=== PATIENT | female | born 1960 | race Caucasian/White ===

== ENCOUNTER 2020-08-06 07:48 | Outpatient (REF) | payer OTHER, SELFPAY ==
[2020-08-06 11:04] LABS: MANUAL DIFF FLAG NO
[2020-08-06 11:11] LABS: Glucose Urine UA NEG (NEG); Leukocyte Esterase Urine NEG (NEG); Nitrite Urine NEG (NEG); PH 5.5 (5.0-8.0); Specific Gravity - Urine >= 1.030 (1.005-1.025); Urine Blood NEG (NEG); Urine Ketones NEG (NEG); Urine Protein NEG (NEG-TRACE)
[2020-08-06 11:13] LABS: Appearance Urine CLOUDY; Color Urine YELLOW
[2020-08-06 11:25] LABS: Basophils Percent Auto 0.5 % (0-2); Eosinophils Absolute Auto 0.2 X10*3/uL (0.0-0.4); Eosinophils Percent Auto 2.7 % (0-4); Hematocrit 40.8 % (37-47); Hemoglobin 13.5 g/dl (12.0-16.0); Imm Gran Abs Auto 0.02 X10*3/uL (0.00-0.03); Imm Gran Pct Auto 0.3 % (0.0-0.4); Lymphocytes Absolute Auto 1.7 X10*3/uL (1.2-4.9); Lymphocytes Percent Auto 27.8 % (20-40); Mean Corpuscular HGB Conc 33.1 g/dl (31.0-35.0); Mean Corpuscular Hemoglobin 31.8 pg (27.0-33.0); Mean Corpuscular Volume 96.2 fL (80-98); Mean Platelet Volume 9.8 fL (9.4-12.3); Monocytes Absolute Auto 0.5 X10*3/uL (0.1-1.2); Monocytes Percent Auto 7.2 % (2-11); Neutrophils Absolute Auto 3.8 X10*3/uL (2.0-8.3); Neutrophils Percent Auto 61.5 % (45-73); Platelet Count 275 X10*3/uL (160-400); Red Blood Count 4.24 X10*6/uL (4.20-5.50); Red Cell Distribution Width 12.6 % (11.0-16.0); White Blood Count 6.2 X10*3/uL (4.8-10.8)
[2020-08-06 11:32] LABS: Estimated Average Glucose 111 mg/dL; Hemoglobin A1c % 5.5 %
[2020-08-06 11:59] LABS: Alanine Aminotransferase 103 U/L (0-31); Albumin Level 4.6 g/dL (3.5-5.0); Alkaline Phosphatase 43 U/L (39-117); Anion Gap 16 (12-20); Aspartate Amino Transferase 23 U/L (5-31); Bilirubin Total 0.8 mg/dL (0.0-1.0); Blood Urea Nitrogen 17 mg/dL (9-16); Calcium 9.6 mg/dL (8.4-10.2); Carbon Dioxide 25 mmol/L (22-29); Chloride 106 mmol/L (96-108); Cholesterol 212 mg/dL; Estimated Glomerular Filt Rate > 60; Glucose Fasting 118 mg/dL (60-99); HDL Cholesterol 58 mg/dL; LDL Cholesterol Calculated 124 mg/dl; Potassium 4.3 mmol/L (3.3-5.1); Sodium 143 mmol/L (135-145); Triglycerides 151 mg/dL
[2020-08-06 12:18] LABS: TSH reflex Free T4 2.04 uIU/mL (0.32-4.0); Vitamin D 25-OH Total 24.6 ng/mL (>30)
== END 2020-08-06 07:49 | disposition home or self-care (01) ==
LOC: HO.HMGCLDS 07:48
PROVIDERS: PCP Internal Medicine; Visit Provider Internal Medicine
DX: R73.01 Impaired fasting glucose (principal); E55.9 Vitamin D deficiency, unspecified; M85.80 Other specified disorders of bone density and structure, unspecified site; N39.46 Mixed incontinence; E78.00 Pure hypercholesterolemia, unspecified; E66.01 Morbid (severe) obesity due to excess calories; Z68.41 Body mass index [BMI] 40.0-44.9, adult; K29.70 Gastritis, unspecified, without bleeding; J30.9 Allergic rhinitis, unspecified; F17.200 Nicotine dependence, unspecified, uncomplicated
CPT/HCPCS: 36415; 80053; 80061; 81003; 82306; 83036; 84443; 85025

== ENCOUNTER 2020-08-27 09:41 | Outpatient (REF) | payer OTHER, SELFPAY ==
--- NOTE | ~2020-08-27 | MM_ITS ---
EXAMINATION: MM SCREENING DIGITAL BREAST TOMOSYNTHESIS, BILATERAL CLINICAL INFORMATION: Screening. Asymptomatic. The lifetime risk of breast cancer based on the Tyrer-Cuzick Model is 7%. COMPARISON: Mammography: 12/26/2018, 12/20/2017, 12/15/2016, 12/13/2014, 12/06/2014; right breast ultrasound 12/13/2014. TECHNIQUE: Digital breast tomosynthesis is performed in both the craniocaudal and mediolateral oblique views along with computer-aided detection (CAD). Synthesized 2D images are generated from the tomosynthesis. FINDINGS: There are scattered areas of fibroglandular density (ACR BI-RADS breast composition Category b). There are no significant masses, abnormal calcifications, or other abnormalities. There is a smooth nodule central anterior 9:00 right breast similar to prior imaging. The bilateral axilla and skin contours are unremarkable. MM/MM tomosynthesis screening BI IMPRESSION: No significant changes from prior exams. ASSESSMENT: BI-RADS 2: Benign RECOMMENDATION: Routine annual mammography screening. This patient's information was entered into a reminder system with a target due date for their next mammogram.
== END 2020-08-27 09:42 | disposition home or self-care (01) ==
LOC: HO.MAMMO 09:41
PROVIDERS: PCP Internal Medicine; Visit Provider Internal Medicine
DX: Z12.31 Encounter for screening mammogram for malignant neoplasm of breast (principal)
CPT/HCPCS: 77063; 77067

== ENCOUNTER 2020-09-29 07:25 | Day surgery (SDC) | payer OTHER, SELFPAY ==
[2020-09-18 11:21] VITALS: BMI 42.3
--- NOTE | 2020-09-24 16:34 | MHC.SHP ---
Pre-Procedural Eval Section A The patient is an INPATIENT: No The History & Physical has been completed within 30 days and I have reviewed it.: Yes Section B Chief Complaint: Cataract Right Eye Allergies: Allergies Allergy/AdvReac Type Severity Reaction Status Date / Time Seasonal Allergy Unknown unknown Uncoded 09/18/20 11:08 trees and pollen Allergy Unknown unknown Uncoded 09/18/20 11:08 Plan Diagnosis/Plan: Unchanged I have reviewed the history and physical and performed a pertinent physical examination on my patient. No changes have occurred unless specified.
--- NOTE | 2020-09-26 09:40 | HO.ANESPROP2 ---
Documented by User: Katherine Pepper 09/26/20 09:40 HPI - Anesthesia Eval Consult details Narrative: 60yo F for Right Cataract Extraction IOL Insertion PCP Cleared No prev cataract on record PMFSH Active Problems Active Problems: All Active Problems (Updated 09/11/20 @ 09:09 by Javan Valdovinos MD) Cataract (Acute) Preoperative clearance (Acute) Morbid obesity with BMI of 40.0-44.9, adult (Acute) Smoker (Acute) Major depression, recurrent (Acute) Anxiety (Acute) Mixed stress and urge urinary incontinence (Acute) Post herpetic neuralgia (Acute) Osteopenia (Acute) Vitamin D deficiency (Acute) Allergic rhinitis (Acute) Impaired fasting glucose (Acute) Pure hypercholesterolemia (Acute) Gastritis (Acute) Past Medical History Medical History Allergic rhinitis Anxiety Cataract Gastritis Impaired fasting glucose Major depression, recurrent Mixed stress and urge urinary incontinence Morbid obesity with BMI of 40.0-44.9, adult Osteopenia Post herpetic neuralgia Pure hypercholesterolemia Smoker Vitamin D deficiency Family History Family History Father Diabetes Brain tumor Mother COPD (chronic obstructive pulmonary disease) Emphysema lung Surgical History Surgical History History of bunionectomy History of foot surgery Social History Social History Are you a primary caregiver assisted living to a significant other at home: No Do you presently have visiting nurse or other home services: No Alcohol intake: never Patient Tobacco Use Status: Current everyday Tobacco user Tobacco use type: Cigarette Cigarette Packs Per Day: 0.5 Cigarettes Per Day: 10.0 Years Smoked: 40 Smoked in Last 30 Days: Yes Patient Interested in Nicotine Replacement: No Use of substances other than those prescribed or required for medical reasons: No Have you been hit, kicked, punched, or otherwise hurt by someone within the past year? If so, by whom?: No Are you DNR?: No Advance Directives: No Advance Directives Information Provided: No Advance Directives on File: No Recently lost weight without trying: No Eating poorly because of decreased appetite: No Nutrition Risks: No Nutritional Risk Patient : No Meds Allergies Allergy/AdvReac Type Severity Reaction Status Date / Time Seasonal Allergy Unknown unknown Uncoded 09/18/20 11:08 trees and pollen Allergy Unknown unknown Uncoded 09/18/20 11:08 Home Medications Medication Instructions Recorded Confirmed Last Taken Type aspirin 81 mg chewable tablet 81 mg PO DAILY 03/10/20 09/18/20 Unknown History omeprazole 20 mg PO DAILY PRN 09/18/20 09/18/20 Unknown History Exam Exam Date and Time: September 26, 2020 0940 Height,Weight and Vital Signs: Height 5 ft 1 in Weight 101.605 kg Assessment and Plan Assessment Anesthesia Assessment: Chart Reviewed Documented by User: Eusebio Sweeney 09/29/20 07:22 [facility] Past Medical History Medical History Allergic rhinitis Anxiety Cataract Gastritis Impaired fasting glucose Major depression, recurrent Mixed stress and urge urinary incontinence Morbid obesity with BMI of 40.0-44.9, adult Osteopenia Post herpetic neuralgia Pure hypercholesterolemia Smoker Vitamin D deficiency Family History Family History Father Diabetes Brain tumor Mother COPD (chronic obstructive pulmonary disease) Emphysema lung Surgical History Surgical History History of bunionectomy History of foot surgery Social History Social History Are you a primary caregiver assisted living to a significant other at home: No Do you presently have visiting nurse or other home services: No Alcohol intake: never Patient Tobacco Use Status: Current everyday Tobacco user Tobacco use type: Cigarette Cigarette Packs Per Day: 0.5 Cigarettes Per Day: 10.0 Years Smoked: 40 Smoked in Last 30 Days: Yes Patient Interested in Nicotine Replacement: No Use of substances other than those prescribed or required for medical reasons: No Have you been hit, kicked, punched, or otherwise hurt by someone within the past year? If so, by whom?: No Are you DNR?: No Advance Directives: No Advance Directives Information Provided: No Advance Directives on File: No Recently lost weight without trying: No Eating poorly because of decreased appetite: No Nutrition Risks: No Nutritional Risk Patient : No Meds Allergies Allergy/AdvReac Type Severity Reaction Status Date / Time Seasonal Allergy Unknown unknown Uncoded 09/18/20 11:08 trees and pollen Allergy Unknown unknown Uncoded 09/18/20 11:08 Home Medications Medication Instructions Recorded Confirmed Last Taken Type aspirin 81 mg chewable tablet 81 mg PO DAILY 03/10/20 09/18/20 Unknown History omeprazole 20 mg PO DAILY PRN 09/18/20 09/18/20 Unknown History Exam Airway Mallampati Class: III TM Dist: >3cm Neck ROM: Full Loose/Missing/Broken Teeth: Yes Heart: [id number] Lungs: cta b/l Assessment and Plan Assessment Anesthesia Assessment: Anesthesia Plan Discussed, PAT Visit and Chart Reviewed Final Anesthetic Review NPO: Yes ASA Class: III Final Preanesthetic Review: No Changes in Pt Med Stat, Meds/Allgs Chart Reviewed, Consent Obtained/Reviewed and Anes Risks/Benef Reviewed Patient Risk: Low Procedure Risk: Low Assessment/Block/Sedation in SS: Assess/Block/Sedation-SS Anesthetic Plan Anesthetic Plan: MAC: and Agree w/ Assess. and Plan Disposition: Standard PACU
--- NOTE | 2020-09-29 07:19 | PC.NURSE ---
MD HANDY AWARE OF PATIENT H AND P NOT STATING CLEARANCE. OK TO PROCEED.
[2020-09-29 07:31] VITALS: BP 158/66; PULSE 89; RESP 16; TEMP 36.5; O2SAT 97
[2020-09-29] MEDS: Tetracaine HCl/PF 0.5% Oph Sol 4 ML DROPS 1 DROP EYE-RIGHT (07:40)
[2020-09-29] MEDS: Tropicamide 1 % Ophth Sol 3 ML BTL 1 DROP EYE-RIGHT ×3 (07:41→07:54)
[2020-09-29] MEDS: Lactated Ringers 500 ML 50 ML IV (07:45)
[2020-09-29] MEDS: Phenylephrine HCL 2.5% Oph SoL 2 ML BOTTLE 1 DROP EYE-RIGHT ×3 (07:46→07:57)
--- NOTE | 2020-09-29 08:36 | HO.PNOPHT ---
Ophthalmology Procedure Procedure Date of Service: 09/29/20 Ophthalmology Viscoelastic: Healon Duet Dual Pack Pro Ophthalmology Lenses: TECNIS [id number] (20.5) Procedure Notes: PREOPERATIVE DIAGNOSIS: Decreased visual acuity right eye secondary to cataract POSTOPERATIVE DIAGNOSIS: Same PROCEDURE: Right cataract extraction with intraocular lens insertion SURGEON: Giancarlo Kahn M.D. ANESTHESIA: Topical/MAC ESTIMATED BLOOD LOSS: None COMPLICATIONS: None After obtaining informed consent, the patient was brought to the operating room suite and placed in the supine position. After adequate sedation per anesthesia, topical drops of Tetracaine were given to the right eye. The eye was then prepped and draped in the usual sterile fashion. The operating room microscope was then positioned over the operative eye and a lid speculum placed. A paracentesis was created. Viscoelastic was then instilled into the anterior chamber. A three plane incision was then created temporally, utilizing a 2.85 mm keratome. Capsulotomy forceps were then utilized to create a circular tear capsulotomy. Hydrodissection and hydrodelineation were carried out until adequate mobilization of the nucleus occurred. Phacoemulsification was then utilized to remove the dense central nucleus followed by removal of the cortical material utilizing the automated aspiration irrigation unit. Viscoelastic was instilled into the posterior capsular bag followed by placement of a posterior chamber intraocular lens without difficulty. The residual Viscoelastic was then removed utilizing the automated IA machine. The wound was checked and found to be watertight. The patient tolerated the procedure well and the lid speculum was removed. Intracameral injection of Vigamox 0.1 mL followed by a subtenon injection of Kenalog-40 0.2 mL were administered. The patient will be seen in the a.m.
[2020-09-29 09:02] VITALS: BP 158/69; PULSE 84; RESP 16; TEMP 36.2; O2SAT 97
== END 2020-09-29 09:13 | disposition home or self-care (01) ==
PROVIDERS: PCP Internal Medicine; Visit Provider Ophthalmology
PROC: (CPT 66985; principal; 2020-09-29 08:40)
DX: H25.11 Age-related nuclear cataract, right eye (principal); H54.7 Unspecified visual loss; F32.9 Major depressive disorder, single episode, unspecified; B02.29 Other postherpetic nervous system involvement; R73.01 Impaired fasting glucose; M85.80 Other specified disorders of bone density and structure, unspecified site; E66.01 Morbid (severe) obesity due to excess calories; Z68.41 Body mass index [BMI] 40.0-44.9, adult; Z79.899 Other long term (current) drug therapy; Z79.82 Long term (current) use of aspirin; F17.210 Nicotine dependence, cigarettes, uncomplicated
CPT/HCPCS: 66984; J2250; J3010; J3300; V2632

== ENCOUNTER 2020-11-20 13:57 | Outpatient (REF) | payer OTHER, SELFPAY | END 2020-11-20 13:58 | disposition home or self-care (01) | LOC: HO.LNP 13:57 | PROVIDERS: Visit Provider Internal Medicine | DX: Z20.822 Contact with and (suspected) exposure to COVID-19 (principal) | CPT/HCPCS: U0003; U0005 ==

== ENCOUNTER 2021-03-07 09:02 | Outpatient (REF) | payer OTHER, SELFPAY ==
[2021-03-07 11:32] LABS: Hematocrit 40.5 % (37.0-47.0); Hemoglobin 13.6 g/dl (12.0-16.0); Mean Corpuscular HGB Conc 33.6 g/dl (31.0-35.0); Mean Corpuscular Hemoglobin 31.4 pg (27.0-33.0); Mean Corpuscular Volume 93.5 fL (80.0-98.0); Mean Platelet Volume 10.2 fL (9.4-12.3); Platelet Count 178 X10*3/uL (160-400); Red Blood Count 4.33 X10*6/uL (4.20-5.50); Red Cell Distribution Width 12.1 % (11.0-16.0)
[2021-03-07 11:53] LABS: Alanine Aminotransferase 30 U/L (0-31); Albumin Level 4.6 g/dL (3.5-5.0); Alkaline Phosphatase 43 U/L (39-117); Anion Gap 16 (12-20); Aspartate Amino Transferase 18 U/L (5-31); Bilirubin Total 0.7 mg/dL (0.0-1.0); Blood Urea Nitrogen 17 mg/dL (9-16); Calcium 9.7 mg/dL (8.4-10.2); Carbon Dioxide 24 mmol/L (22-29); Chloride 106 mmol/L (96-108); Cholesterol 194 mg/dL; Estimated Glomerular Filt Rate > 60; Glucose Fasting 123 mg/dL (60-99); HDL Cholesterol 59 mg/dL; LDL Cholesterol Calculated 108 mg/dl; Potassium 4.5 mmol/L (3.3-5.1); Sodium 141 mmol/L (135-145); Triglycerides 138 mg/dL
== END 2021-03-07 09:03 | disposition home or self-care (01) ==
LOC: HO.HMGCLDS 09:02
PROVIDERS: PCP Internal Medicine; Visit Provider Nurse Practitioner Family
DX: E78.00 Pure hypercholesterolemia, unspecified (principal); R42 Dizziness and giddiness
CPT/HCPCS: 36415; 80048; 80053; 80061; 85027

== ENCOUNTER 2021-05-21 10:15 | Outpatient (REF) | payer OTHER, SELFPAY ==
--- NOTE | ~2021-05-21 | CT_ITS ---
EXAMINATION: CT CHEST SCREENING CLINICAL INFORMATION: Current smoker. 40 pack year history. COMPARISON: Previous chest CT most recent October 2019 TECHNIQUE: Multidetector volumetric CT imaging of the chest is performed without contrast using low dose technique. Additional 2D coronal and sagittal reformatted images and axial 3D maximum intensity projection (MIP) images are generated on the CT workstation. This CT examination was performed using dose optimization techniques as appropriate, variously including the following: *Automated exposure control *Adjustment of mA and/or kV according to patient size (this includes techniques or standardized protocols for targeted exams where dose is matched to indication/reason for exam; i.e. extremities or head) *Use of iterative reconstruction technique DLP: 89 mGy-cm FINDINGS: LUNGS: There is evidence of mild paraseptal emphysema. There is a focal cystic change in the left upper lobe adjacent to the fissure for example coronal reconstructed image 43 and sagittal reconstructed image 23 that is stable. There is a 3 mm calcified right lower lobe nodule axial image 326 series 4 that is stable. No new pulmonary nodule is seen. There is an azygos lobe. MEDIASTINUM: Mild coronary artery calcification. The mediastinum is otherwise normal. PLEURA: There is no pleural effusion. No pleural mass or thickening. AXILLA: No lymphadenopathy. UPPER ABDOMEN: Unremarkable OSSEOUS STRUCTURES: There are degenerative changes of the spine. CT/CT lung screening IMPRESSION: Mild emphysema. Stable small calcified right lower lobe nodule and focal cystic change in the left upper lobe adjacent to the fissure. Mild coronary artery calcification. ASSESSMENT: Lung-RADS category 2: Benign RECOMMENDATION: Annual low-dose chest CT follow-up recommended.
== END 2021-05-21 10:16 | disposition home or self-care (01) ==
LOC: HO.CT 10:15
PROVIDERS: Visit Provider Physician Assistant Medical
DX: Z12.2 Encounter for screening for malignant neoplasm of respiratory organs (principal); F17.200 Nicotine dependence, unspecified, uncomplicated
CPT/HCPCS: 71271

== ENCOUNTER 2021-08-31 10:20 | Outpatient (REF) | payer OTHER, SELFPAY ==
--- NOTE | ~2021-08-31 | MM_ITS ---
EXAMINATION: MM SCREENING DIGITAL BREAST TOMOSYNTHESIS, BILATERAL CLINICAL INFORMATION: Screening. Asymptomatic. The lifetime risk of breast cancer based on the Tyrer-Cuzick Model is 7%. COMPARISON: Mammography: 08/27/2020, 12/26/2018, 12/20/2017, 12/15/2016 TECHNIQUE: Digital breast tomosynthesis is performed in both the craniocaudal and mediolateral oblique views along with computer-aided detection (CAD). Synthesized 2D images are generated from the tomosynthesis. Additional right CC view is provided. FINDINGS: There are scattered areas of fibroglandular density (ACR BI-RADS breast composition Category b). Parenchymal pattern is similar to prior studies. There is a smooth oval nodule again noted on tomography central anterior 9:00 right breast. There is no significant mass or interval architectural abnormality or abnormal calcifications. The axilla and skin contours are normal. No significant changes. MM/MM tomosynthesis screening BI IMPRESSION: No significant changes from prior studies. ASSESSMENT: BI-RADS 2: Benign RECOMMENDATION: Routine annual mammography screening. This patient's information was entered into a reminder system with a target due date for their next mammogram.
== END 2021-08-31 10:21 | disposition home or self-care (01) ==
LOC: HO.MAMMO 10:20
PROVIDERS: PCP Internal Medicine; Visit Provider Internal Medicine
DX: Z12.31 Encounter for screening mammogram for malignant neoplasm of breast (principal)
CPT/HCPCS: 77063; 77067

== ENCOUNTER 2021-10-03 08:48 | Outpatient (REF) | payer OTHER, SELFPAY ==
[2021-10-03 11:27] LABS: MANUAL DIFF FLAG NO
[2021-10-03 11:47] LABS: Basophils Percent Auto 0.6 % (0-2); Eosinophils Absolute Auto 0.2 X10*3/uL (0.0-0.4); Hematocrit 41.1 % (37.0-47.0); Hemoglobin 13.5 g/dl (12.0-16.0); Imm Gran Abs Auto 0.01 X10*3/uL (0.00-0.03); Imm Gran Pct Auto 0.2 % (0.0-0.4); Lymphocytes Absolute Auto 1.8 X10*3/uL (1.2-4.9); Lymphocytes Percent Auto 33.9 % (20-40); Mean Corpuscular HGB Conc 32.8 g/dl (31.0-35.0); Mean Corpuscular Hemoglobin 31.2 pg (27.0-33.0); Mean Corpuscular Volume 94.9 fL (80.0-98.0); Mean Platelet Volume 9.9 fL (9.4-12.3); Monocytes Absolute Auto 0.5 X10*3/uL (0.1-1.2); Monocytes Percent Auto 9.7 % (2-11); Neutrophils Absolute Auto 2.8 x10*3/uL (2.0-8.3); Neutrophils Percent Auto 52.6 % (45-73); Platelet Count 295 X10*3/uL (160-400); Red Blood Count 4.33 X10*6/uL (4.20-5.50); White Blood Count 5.3 X10*3/uL (4.8-10.8)
[2021-10-03 11:50] LABS: Estimated Average Glucose 108 mg/dL; Hemoglobin A1c % 5.4 %
[2021-10-03 11:59] LABS: Alanine Aminotransferase 35 U/L (0-31); Albumin Level 4.5 g/dL (3.5-5.0); Alkaline Phosphatase 47 U/L (39-117); Anion Gap 16 (12-20); Aspartate Amino Transferase 18 U/L (5-31); Bilirubin Total 0.3 mg/dL (0.0-1.0); Blood Urea Nitrogen 18 mg/dL (9-16); Calcium 9.4 mg/dL (8.4-10.2); Carbon Dioxide 23 mmol/L (22-29); Chloride 109 mmol/L (96-108); Cholesterol 210 mg/dL; Estimated Glomerular Filt Rate > 60; Glucose Fasting 115 mg/dL (60-99); HDL Cholesterol 62 mg/dL; LDL Cholesterol Calculated 129 mg/dl; Potassium 4.8 mmol/L (3.3-5.1); Sodium 143 mmol/L (135-145); Total Protein 6.9 g/dL (6.5-8.0); Triglycerides 95 mg/dL
[2021-10-03 12:12] LABS: Appearance Urine CLOUDY; Color Urine YELLOW; Glucose Urine UA NEG (NEG); Leukocyte Esterase Urine NEG (NEG); Nitrite Urine NEG (NEG); PH 5.5 (5.0-8.0); Specific Gravity - Urine >= 1.030 (1.005-1.025); Urine Blood NEG (NEG); Urine Ketones NEG (NEG); Urine Protein NEG (NEG-TRACE)
[2021-10-03 12:22] LABS: TSH reflex Free T4 0.81 uIU/mL (0.32-4.0); Vitamin D 25-OH Total 34.8 ng/mL (>30)
== END 2021-10-03 08:49 | disposition home or self-care (01) ==
LOC: HO.HMGCLDS 08:48
PROVIDERS: PCP Internal Medicine; Visit Provider Internal Medicine
DX: I10 Essential (primary) hypertension (principal); E78.00 Pure hypercholesterolemia, unspecified; E55.9 Vitamin D deficiency, unspecified; R73.01 Impaired fasting glucose
CPT/HCPCS: 36415; 80053; 80061; 81003; 82306; 83036; 84443; 85025

== ENCOUNTER 2022-02-13 08:28 | Outpatient (REF) | payer OTHER, SELFPAY ==
[2022-02-13 11:22] LABS: MANUAL DIFF FLAG NO
[2022-02-13 11:29] LABS: Appearance Urine Clear; Color Urine Yellow; Glucose Urine UA Negative (Negative); Leukocyte Esterase Urine Negative (Negative); Nitrite Urine Negative (Negative); PH 6.5 (5.0-9.0); Specific Gravity - Urine 1.025 (1.005-1.025); Urine Blood Negative (Negative); Urine Ketones Negative (Negative); Urine Protein Negative (Neg-Trace)
[2022-02-13 11:33] LABS: Basophils Percent Auto 0.4 % (0-2); Eosinophils Absolute Auto 0.1 X10*3/uL (0.0-0.4); Eosinophils Percent Auto 2.4 % (0-4); Hematocrit 40.3 % (37.0-47.0); Hemoglobin 13.4 g/dl (12.0-16.0); Imm Gran Abs Auto 0.02 X10*3/uL (0.00-0.03); Imm Gran Pct Auto 0.4 % (0.0-0.4); Lymphocytes Absolute Auto 1.5 X10*3/uL (1.2-4.9); Lymphocytes Percent Auto 28.7 % (20-40); Mean Corpuscular HGB Conc 33.3 g/dl (31.0-35.0); Mean Corpuscular Hemoglobin 31.4 pg (27.0-33.0); Mean Corpuscular Volume 94.4 fL (80.0-98.0); Mean Platelet Volume 10.3 fL (9.4-12.3); Monocytes Absolute Auto 0.4 X10*3/uL (0.1-1.2); Monocytes Percent Auto 7.5 % (2-11); Neutrophils Absolute Auto 3.2 x10*3/uL (2.0-8.3); Neutrophils Percent Auto 60.6 % (45-73); Platelet Count 168 X10*3/uL (160-400); Red Blood Count 4.27 X10*6/uL (4.20-5.50); Red Cell Distribution Width 12.5 % (11.0-16.0); White Blood Count 5.3 X10*3/uL (4.8-10.8)
[2022-02-13 11:51] LABS: Alanine Aminotransferase 37 U/L (0-31); Albumin Level 4.5 g/dL (3.5-5.0); Alkaline Phosphatase 44 U/L (39-117); Anion Gap 16 (12-20); Aspartate Amino Transferase 24 U/L (5-31); Bilirubin Total 0.5 mg/dL (0.0-1.0); Blood Urea Nitrogen 19 mg/dL (9-16); Calcium 9.5 mg/dL (8.4-10.2); Carbon Dioxide 24 mmol/L (22-29); Chloride 108 mmol/L (96-108); Cholesterol 202 mg/dL; Estimated Glomerular Filt Rate > 60; Glucose Fasting 122 mg/dL (60-99); HDL Cholesterol 68 mg/dL; LDL Cholesterol Calculated 116 mg/dl; Potassium 4.4 mmol/L (3.3-5.1); Sodium 144 mmol/L (135-145); Total Protein 6.7 g/dL (6.5-8.0); Triglycerides 94 mg/dL
[2022-02-13 12:14] LABS: TSH reflex Free T4 1.06 uIU/mL (0.32-4.0); Vitamin D 25-OH Total 37.4 ng/mL (>30)
== END 2022-02-13 08:29 | disposition home or self-care (01) ==
LOC: HO.HMGCLDS 08:28
PROVIDERS: PCP Internal Medicine; Visit Provider Internal Medicine
DX: E78.00 Pure hypercholesterolemia, unspecified (principal); E55.9 Vitamin D deficiency, unspecified; I10 Essential (primary) hypertension
CPT/HCPCS: 36415; 80053; 80061; 81003; 82306; 84443; 85025

== ENCOUNTER 2022-03-05 09:33 | Outpatient (REF) | payer OTHER, SELFPAY ==
[2022-03-09 06:37] LABS: HPV mRNA E6/E7 rflx Not Detected (Not Detected)
== END 2022-03-05 09:34 | disposition home or self-care (01) ==
LOC: HO.LNP 09:33
PROVIDERS: Visit Provider Advanced Practice Midwife
DX: Z01.419 Encounter for gynecological examination (general) (routine) without abnormal findings (principal)
CPT/HCPCS: 87624; 88142

== ENCOUNTER 2022-06-16 08:44 | Outpatient (REF) | payer OTHER, SELFPAY ==
[2022-06-16 11:55] LABS: Alanine Aminotransferase 38 U/L (0-31); Albumin Level 4.5 g/dL (3.5-5.0); Alkaline Phosphatase 43 U/L (39-117); Anion Gap 12 (12-20); Aspartate Amino Transferase 21 U/L (5-31); Bilirubin Total 0.8 mg/dL (0.0-1.0); Blood Urea Nitrogen 21 mg/dL (9-16); Calcium 9.5 mg/dL (8.4-10.2); Carbon Dioxide 27 mmol/L (22-29); Chloride 107 mmol/L (96-108); Cholesterol 204 mg/dL; Estimated Glomerular Filt Rate > 60; Glucose Fasting 149 mg/dL (60-99); HDL Cholesterol 61 mg/dL; LDL Cholesterol Calculated 124 mg/dl; Potassium 4.3 mmol/L (3.3-5.1); Sodium 142 mmol/L (135-145); Total Protein 6.6 g/dL (6.5-8.0); Triglycerides 97 mg/dL
[2022-06-16 11:56] LABS: Estimated Average Glucose 123 mg/dL; Hemoglobin A1C 151.7954 umol/L; Hemoglobin A1c % 5.9 %
== END 2022-06-16 08:45 | disposition home or self-care (01) ==
LOC: HO.HMGCLDS 08:44
PROVIDERS: PCP Internal Medicine; Visit Provider Internal Medicine
DX: E78.00 Pure hypercholesterolemia, unspecified (principal); R73.01 Impaired fasting glucose
CPT/HCPCS: 36415; 80053; 80061; 83036

== ENCOUNTER 2022-07-09 09:04 | Outpatient (REF) | payer OTHER, SELFPAY ==
--- NOTE | ~2022-07-09 | CT_ITS ---
EXAMINATION: LUNG CANCER SCREENING CT CHEST WITHOUT CONTRAST CLINICAL INFORMATION: Current smoker with 50 pack year history COMPARISON: 05/21/2021 TECHNIQUE: Multidetector volumetric CT imaging of the chest was obtained noncontrast using low dose screening CT technique. Axial thin section 0.625 mm reformations in soft tissue and lung windows were obtained. Sagittal and coronal reformations were obtained. Axial MIP images were also created and reviewed. This CT examination was performed using dose optimization techniques as appropriate, variously including the following: *Automated exposure control *Adjustment of mA and/or kV according to patient size (this includes techniques or standardized protocols for targeted exams where dose is matched to indication/reason for exam; i.e. extremities or head) *Use of iterative reconstruction technique TOTAL EXAM DLP: 71.00 mGy-cm. FINDINGS: PULMONARY NODULES: No suspicious pulmonary nodules. Stable calcified granulomata in the right lower lobe. LUNGS / PLEURA: Mild upper lobe predominant centrilobular emphysema. Diffuse mild bronchial wall thickening without bronchiectasis. Stable localized cystic change in the left upper lobe near the major fissure. No pleural effusion or pneumothorax. MEDIASTINUM / AFSHIN: Heart normal in size without pericardial effusion. Great vessels normal caliber. No lymphadenopathy. Coronary calcifications present. Imaged thyroid gland unremarkable. CHEST WALL / AXILLA: Unremarkable. UPPER ABDOMEN: Mild hepatic steatosis. OSSEOUS STRUCTURES: No acute or suspicious osseous abnormalities. CT/CT lung screening IMPRESSION: * No evidence of pulmonary malignancy. * Mild emphysema and chronic airways disease. * Hepatic steatosis. ASSESSMENT: Lung RADS category: 2S. Benign appearance or behavior. Nodules with a very low likelihood of becoming a clinically active cancer due to size or lack of growth. Continue annual screening with low-dose CT in 12 months. Probability of malignancy less than 1%. Clinically significant or potentially clinically significant findings (non lung cancer). Management as appropriate to the specific finding. INCIDENTAL FINDINGS (S CATEGORY): None. RECOMMENDATION: Follow up low dose CT chest in 1 year.
== END 2022-07-09 09:05 | disposition home or self-care (01) ==
LOC: HO.CT 09:04
PROVIDERS: PCP Internal Medicine; Visit Provider Physician Assistant Medical
DX: Z12.2 Encounter for screening for malignant neoplasm of respiratory organs (principal); F17.210 Nicotine dependence, cigarettes, uncomplicated
CPT/HCPCS: 71271

== ENCOUNTER 2022-10-19 08:40 | Outpatient (REF) | payer OTHER, SELFPAY ==
--- NOTE | ~2022-10-19 | MM_ITS ---
EXAMINATION: MM SCREENING DIGITAL BREAST TOMOSYNTHESIS, BILATERAL CLINICAL INFORMATION: Screening. Asymptomatic. The lifetime risk of breast cancer based on the Tyrer-Cuzick Model is 8%. COMPARISON: Multiple prior breast imaging exams including most recent mammography 08/31/2021. TECHNIQUE: Digital breast tomosynthesis is performed in both the craniocaudal and mediolateral oblique views along with computer-aided detection (CAD). Synthesized 2D images are generated from the tomosynthesis. Additional left CC and left MLO views are provided. FINDINGS: There are scattered areas of fibroglandular density (ACR BI-RADS breast composition Category b). There are no significant masses, abnormal calcifications, or other abnormalities. No architectural abnormality or developing density or significant change from prior studies. There is a circumscribed 1.1 cm nodule again seen mid 9:30 right breast. History right cyst on remote prior ultrasound. The axilla are unremarkable. There are no significant changes. MM/MM tomosynthesis screening BI IMPRESSION: No mammographic evidence of malignancy. ASSESSMENT: BI-RADS 2: Benign RECOMMENDATION: Routine annual mammography screening. This patient's information was entered into a reminder system with a target due date for their next mammogram.
== END 2022-10-19 08:41 | disposition home or self-care (01) ==
LOC: HO.MAMMO 08:40
PROVIDERS: PCP Internal Medicine; Visit Provider Internal Medicine
DX: Z12.31 Encounter for screening mammogram for malignant neoplasm of breast (principal)
CPT/HCPCS: 77063; 77067

== ENCOUNTER 2022-11-12 10:48 | Outpatient (REF) | payer OTHER, SELFPAY ==
[2022-11-12 14:22] LABS: MANUAL DIFF FLAG NO
[2022-11-12 14:47] LABS: Basophils Percent Auto 0.5 % (0-2); Eosinophils Absolute Auto 0.2 X10*3/uL (0.0-0.4); Eosinophils Percent Auto 2.6 % (0-4); Hematocrit 43.7 % (37.0-47.0); Hemoglobin 14.1 g/dl (12.0-16.0); Imm Gran Abs Auto 0.02 X10*3/uL (0.00-0.03); Imm Gran Pct Auto 0.3 % (0.0-0.4); Lymphocytes Absolute Auto 1.7 X10*3/uL (1.2-4.9); Lymphocytes Percent Auto 30.2 % (20-40); Mean Corpuscular HGB Conc 32.3 g/dl (31.0-35.0); Mean Corpuscular Hemoglobin 30.7 pg (27.0-33.0); Mean Corpuscular Volume 95.2 fL (80.0-98.0); Monocytes Absolute Auto 0.4 X10*3/uL (0.1-1.2); Neutrophils Absolute Auto 3.4 x10*3/uL (2.0-8.3); Neutrophils Percent Auto 59.4 % (45-73); Platelet Count 247 X10*3/uL (160-400); Red Blood Count 4.59 X10*6/uL (4.20-5.50); Red Cell Distribution Width 12.6 % (11.0-16.0); White Blood Count 5.7 X10*3/uL (4.8-10.8)
[2022-11-12 15:06] LABS: Estimated Average Glucose 120 mg/dL; Hemoglobin A1C 149.6981 umol/L; Hemoglobin A1c % 5.8 %
[2022-11-12 15:15] LABS: Alanine Aminotransferase 36 U/L (0-31); Albumin Level 4.7 g/dL (3.5-5.0); Alkaline Phosphatase 46 U/L (39-117); Anion Gap 13 (12-20); Aspartate Amino Transferase 22 U/L (5-31); Bilirubin Total 0.6 mg/dL (0.0-1.0); Blood Urea Nitrogen 17 mg/dL (9-16); Carbon Dioxide 26 mmol/L (22-29); Chloride 106 mmol/L (96-108); Cholesterol 181 mg/dL; Estimated Glomerular Filt Rate > 60; Glucose Fasting 121 mg/dL (60-99); HDL Cholesterol 61 mg/dL; LDL Cholesterol Calculated 98 mg/dl; Potassium 4.2 mmol/L (3.3-5.1); Sodium 141 mmol/L (135-145); Total Protein 7.2 g/dL (6.5-8.0); Triglycerides 110 mg/dL
== END 2022-11-12 10:49 | disposition home or self-care (01) ==
LOC: HO.HMGCLDS 10:48
PROVIDERS: PCP Internal Medicine; Visit Provider Internal Medicine
DX: R73.01 Impaired fasting glucose (principal); I10 Essential (primary) hypertension; E78.00 Pure hypercholesterolemia, unspecified
CPT/HCPCS: 36415; 80053; 80061; 83036; 85025

== ENCOUNTER 2022-12-16 09:26 | Outpatient (AMB) | payer OTHER, SELFPAY ==
--- NOTE | 2022-12-16 10:59 | AM.OFFWIN_ITS ---
Intake Vital Signs 12/16/22 11:05 Weight 102.058 kg BP 120/80 Blood Pressure Location Lt brachial Position Sitting Pulse 104 H Pulse Source Pulse Oximeter Temp 99 F Temp Source Oral Pulse Oximetry (%) 95 Oxygen Delivery Method Room Air Intake Visit Reasons: EP, headache, ear pain, body ache [phone] Intake Note: Patient here because she has been sick since Tuesday, she has headaches, bilat ear pain, bodyaches and chills. Patient Tobacco Use Status: Current everyday Tobacco user Allergies Seasonal Allergy (Unknown, Uncoded 12/16/22 11:00) unknown trees and pollen Allergy (Unknown, Uncoded 12/16/22 11:00) unknown Do you need a note to return to daycare/school/sports/work: Yes HPI HPI Comments History of Present Illness Details 1132 62-year-old female presents COVID like symptoms, complaining of body aches and pains, fatigue, malaise, fevers, chills, diffuse headache without vision changes or dizziness, rhinorrhea, bilateral ear discomfort, dry cough for the past 2 days, significant other at home now sick. Denies chest pain, shortness of breath, nausea, vomiting, abdominal pain. Physical examination with faint wheezing bilaterally on expiration. Concerns for COVID-19 versus viral illness versus bronchitis. No signs of necrotizing of otitis, otitis media, otitis externa, mastoiditis. No signs of stroke, posterior stroke, intracranial hemorrhage. Plan viral testing will send her home with Tylenol and albuterol and prednisone. Educated patient on diagnosis and treatment plan, answered all question, patient verbalizes understanding. At this time patient will be discharged home, advised to return with new or worsening symptoms. Educated on worrisome signs and symptoms and when to return. At this time I feel comfortable discharge home. [facility] Medical History Allergic rhinitis Anxiety Gastritis Impaired fasting glucose Major depression, recurrent Mixed stress and urge urinary incontinence Morbid obesity with BMI of 40.0-44.9, adult Nicotine dependence, cigarettes, uncomplicated Osteopenia (~2019) Post herpetic neuralgia Pure hypercholesterolemia Vitamin D deficiency Surgical History History of bunionectomy History of cataract surgery History of foot surgery Family History Father Diabetes Brain tumor Mother COPD (chronic obstructive pulmonary disease) Emphysema lung Social History Household Members Other:: fiance Housing: House Are you a primary live in caregiver to a significant other at home: No Do you presently have visiting nurse or other home services: No Alcohol intake: current Alcohol intake frequency: a few times a week Alcohol type: beer Patient Tobacco Use Status: Current everyday Tobacco user Tobacco use type: Cigarette Cigarette Packs Per Day: 0.5 Cigarettes Per Day: 10.0 Years Smoked: 40 e-Cigarette/Vaping Use: Never Used Second Hand Smoke Exposure: Yes service: No Current occupational status: employed 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 Sexual orientation: Straight/Heterosexual Gender identity: Female Cognitive needs: No Hearing needs: No Vision needs: Yes (reading glasses) Review of Systems Const Details: Constitutional : No Weight loss, + Fever, + Chills, + Fatigue, + Malaise ENT/Mouth : No sore throat, + Rhinorrhea Eyes: No Eye Pain, No Swelling, No Redness Cardiovascular : No Chest Pain, No SOB, No Dyspnea on Exertion, No Orthopnea, No Edema, No Palpitations Respiratory : + Cough, No Sputum, No Wheezing Gastrointestinal : No Nausea, No Vomiting, No Diarrhea, No Constipation, No abdominal Pain, No Hematochezia, No Melena Genitourinary : No Dysuria, No Urinary Frequency, No Hematuria, Musculoskeletal : No joint pain, + Myalgias, No Joint Swelling Skin : No Skin Lesions, No rash Neuro : No Weakness, No Numbness, No Dizziness, No Headache Psych : No Anxiety/Panic, No Depression All other systems reviewed and are negative All systems reviewed & are unremarkable except as noted in HPI and below Physical Exam Vital Signs: Last Vital Signs Temp 99 F 12/16/22 11:05 Pulse 104 H 12/16/22 11:05 BP 120/80 12/16/22 11:05 Pulse Ox 95 12/16/22 11:05 Oxygen Delivery Method Room Air 12/16/22 11:05 vss Appearance: Alert.? Oriented X3.? No acute distress.? Head: Normocephalic, atraumatic, no step-offs or deformities Eyes: Pupils equal, round and reactive to light.? ENT: Pharynx normal.??External ears normal, TMs normal bilaterally and EAC's normal. No pain with manipulation of external ears bilaterally. No mastoid tenderness. Neck: Normal inspection.? Neck supple.? CVS: Normal heart rate and rhythm.? Pulses normal.? Respiratory: No respiratory distress.? Breath sounds expiratory wheezing bilaterally faint.? Abdomen: Soft and nontender.? Skin: Skin warm and dry.? Normal skin color.? Normal skin turgor.? Extremities: No lower extremity edema.? No calf ttp. 5/5 strength to bilateral upper and lower extremities Neuro: Oriented X 3.? No motor deficit.? No sensory deficit. CN 2-12 intact Assessment & Plan Assessment & Plan (1) Viral illness: Code(s): B34.9 - Viral infection, unspecified Plan Take your medications as prescribed. If you were prescribed antibiotics today, it is important that you take your medication to their entirety, do not skip any doses, do not finish them early. Follow-up with your primary care provider this week. Return to the emergency department with new or worsening symptoms. Such as fevers, chills, chest pain, shortness of breath, nausea, vomiting, dizziness, headache, vision changes, lethargy In case of emergency call 911 Orders: Orders SARS-CoV2/FLU/RSV Today B34.9 - Viral infection, unspecified Medications: New prednisone 20 mg PO DAILY 5 tabs 0RF 5 days albuterol sulfate 90 mcg/actuation 2 puffs inhalation Q6H PRN 6.7 grams 0RF shortness of breath or wheezing acetaminophen (Tylenol) 325 mg PO QID PRN 30 caps 0RF pain Coding Level of Care Code Est Pt Level 3 (39753) Diagnoses Viral illness B34.9
[2022-12-16 11:05] VITALS: BP 120/80; PULSE 104; TEMP 37.2; O2SAT 95
== END 2022-12-16 11:35 | disposition home or self-care (01) ==
PROVIDERS: PCP Internal Medicine; Visit Provider Physician Assistant
DX: B34.9 Viral infection, unspecified (principal)
CPT/HCPCS: 99213

== ENCOUNTER 2022-12-16 15:02 | Outpatient (REF) | payer OTHER, SELFPAY ==
[2022-12-16 16:42] LABS: Influenza A PCR NEGATIVE (Negative); Influenza B PCR NEGATIVE (Negative); Resp Syncy Virus RNA Qual PCR NEGATIVE (Negative); SARS COV2 PCR INHOUSE POSITIVE (Negative)
== END 2022-12-16 15:03 | disposition home or self-care (01) ==
LOC: HO.CHCLDS 15:02
PROVIDERS: Visit Provider Physician Assistant
DX: B34.9 Viral infection, unspecified (principal); Z20.828 Contact with and (suspected) exposure to other viral communicable diseases
CPT/HCPCS: 0241U

== ENCOUNTER 2023-03-24 11:09 | Outpatient (AMB) | payer OTHER, SELFPAY ==
--- NOTE | 2023-03-24 11:14 | MHC.OFFVIS ---
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 She is doing well with concerns: overactive bladder and incontinence. Admits to having soda and caffeinated beverages. Attempting to eat a somewhat healthy diet with calcium and vitamin D and stays active with limited exercise. Currently sexually active. Denies irritation. Last pap smear; 02/2022-neg. Last mammogram; 09/2022. Colonoscopy is UTD. Denies any family history of breast or ovarian cancer. FH colon cancer. [facility] Medical History Nicotine dependence, cigarettes, uncomplicated Morbid obesity with BMI of 40.0-44.9, adult Major depression, recurrent Anxiety Mixed stress and urge urinary incontinence Post herpetic neuralgia Osteopenia (~2019) Vitamin D deficiency Allergic rhinitis Impaired fasting glucose Pure hypercholesterolemia Gastritis Surgical History History of cataract surgery History of foot surgery History of bunionectomy Family History (Updated 03/24/23 @ 11:20 by FUENTES Cadena) Father Diabetes Brain tumor Mother COPD (chronic obstructive pulmonary disease) Emphysema lung Brother Colon cancer Social History (Updated 03/24/23 @ 11:20 by FUENTES Cadena) Household Members Other:: fiance Housing: House Are you a primary child care associate to a significant other at home: No Do you presently have visiting nurse or other home services: No Alcohol intake: current Alcohol intake frequency: a few times a week Alcohol type: beer Patient Tobacco Use Status: Current everyday Tobacco user Tobacco use type: Cigarette Cigarette Packs Per Day: 0.5 Cigarettes Per Day: 4 Years Smoked: 40 e-Cigarette/Vaping Use: Never Used Second Hand Smoke Exposure: Yes service: No Current occupational status: employed 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 Sexual orientation: Straight/Heterosexual Gender identity: Female Cognitive needs: No Hearing needs: No Vision needs: Yes (reading glasses) Female Reproductive History Menstrual Total pregnancies: 2 Ab induced: 2 Date of last pap smear: 03/05/22 (neg pap and hpv) Date of Mammogram: 10/19/22 (Birad 2) Review of Systems Const All systems reviewed & are unremarkable except as noted in HPI and below Reports as per HPI Eyes Reports no additional complaints ENT Reports no additional complaints Card Reports no additional complaints Resp Reports no additional complaints GI Reports as per HPI and Reports no additional complaints Reports as per HPI Musc Reports no additional complaints Skin/Breast Reports as per HPI Neuro Reports no additional complaints Psych Reports no additional complaints Endo Reports no additional complaints Ralph/Lymph Reports no additional complaints Aller/Immun Reports no additional complaints Physical Exam Vital Signs: Last Vital Signs BP 122/74 03/24/23 11:15 BMI result Body Mass Index 42.1 Const General: cooperative, healthy appearing, no acute distress, well developed and alert Orientation/consciousness: patient oriented x3 HEENT Head: Yes normal to inspection Eyes General: appearance normal, both eyes and all related structures Neck Neck: Yes normal visual inspection Thyroid: Thyroid normal Chest Chest palpation & inspection: normal inspection of the chest and other (no puckering, dimpling, peau de orange, retraction, discharge, masses) Breast/axilla inspection: normal inspection of the breasts Breast/axilla palpation: normal palpation of the breasts Resp Effort & Inspection: normal respiratory effort GI Inspection: Yes normal to inspection Palpation (GI): Soft to palpation Rectal Exam - Female: deferred General: Yes bladder normal to palpation External Female Exam: normal external appearance and normal appearance of the urethra Speculum Exam - Vagina: normal appearance of the vagina, normal palpation and normal vaginal discharge Speculum Exam - Cervix: normal appearance of the cervix and normal palpation Bimanual exam- vagina & uterus: normal bimanual exam, normal palpation, uterine size normal, bladder normal to palpation, normal palpation and non-tender Bimanual Exam- Adnexa, other: no masses Skin General skin exam: no rashes or lesions noted Rashes: no rashes Neuro General: patient oriented x3 Cognition (Neuro): normal cognition Extrem General: Yes normal to inspection Psych Attitude: cooperative Thought process: Normal thought process present Assessment & Plan Assessment & Plan (1) Encounter for well woman exam with routine gynecological exam: Code(s): Z01.419 - Encounter for gynecological examination (general) (routine) without abnormal findings Plan: Encouraged tobacco cessation. (2) Incontinence: Code(s): R32 - Unspecified urinary incontinence Qualifiers: Urinary Incontinence type: unspecified incontinence Plan: Referral to urology. Consider pelvic floor therapy. Plan Discussed: Current recommendations for pap smears per ASCCP guidelines. Breast awareness, periodic self breast exams and yearly mammogram. Maintain a healthy lifestyle, well balanced diet including Calcium 1,200 mg and Vitamin D 600 IU daily, and routine exercise. Contact the office with any postmenopausal bleeding. Sign up for the patient portal if not already enrolled. All of her questions and concerns were addressed to the best of my ability. RTO in 1 year for annual licensed prosthetist exam. Orders: Referrals Urology Referral R32 - Unspecified urinary incontinence Coding Level of Care Code Est Pt Prev Care 40-64y(89149) Diagnoses Encounter for well woman exam with routine gynecological exam Z01.419 Incontinence R32 Urinary Incontinence type: unspecified incontinence
[2023-03-24 11:15] VITALS: BP 122/74; BMI 42.1
== END 2023-03-24 11:51 | disposition home or self-care (01) ==
PROVIDERS: PCP Internal Medicine; Visit Provider Advanced Practice Midwife
DX: Z01.419 Encounter for gynecological examination (general) (routine) without abnormal findings (principal); R32 Unspecified urinary incontinence
CPT/HCPCS: 99396

== ENCOUNTER → 2023-03-24 11:09 | Outpatient (BNVA) | payer OTHER, SELFPAY | PROVIDERS: PCP Internal Medicine; Visit Provider Advanced Practice Midwife ==

== ENCOUNTER 2023-05-03 13:17 | Outpatient (AMB) | payer OTHER, SELFPAY ==
[2023-05-03 13:19] VITALS: BP 118/76; PULSE 88; O2SAT 96; BMI 42.3
--- NOTE | 2023-05-03 13:19 | MHC.PC.OV ---
Vital Signs 05/03/23 13:19 Height 5 ft 1 in Weight 224 lb 2 oz BMI 42.3 BP 118/76 Blood Pressure Location Lt brachial Position Sitting Pulse 88 Pulse Source Pulse Oximeter Pulse Oximetry (%) 96 Oxygen Delivery Method Room Air Intake Visit Reasons: 6 Month F/U Labs Head Porter Required: No Accompanied by: Self / Same As Patient Allergies Seasonal Allergy (Unknown, Uncoded 05/03/23 13:52) unknown trees and pollen Allergy (Unknown, Uncoded 05/03/23 13:52) unknown Medication List - Last Reconciled 05/03/23 by Jose David Weeks MD acetaminophen (Tylenol) 325 mg PO QID PRN acyclovir 200 mg PO Q12H PRN 7 days albuterol sulfate 90 mcg/actuation 2 puffs inhalation Q6H PRN aspirin 81 mg PO DAILY atorvastatin 40 mg PO BEDTIME 90 days clonazepam 0.5 mg PO DAILY PRN 30 days fluoxetine 40 mg (2 x 20 mg) PO DAILY 90 days fluticasone propionate 50 mcg/actuation 2 sprays intranasal DAILY 30 days ibuprofen 800 mg PO Q8H PRN 30 days omeprazole 20 mg PO DAILY Ventolin HFA 90 mcg/actuation (albuterol sulfate) 2 puffs inhalation Q6H PRN NS Tobacco use date assessed: 05/03/23 Dental Screening Dental Screen Date: 05/03/23 Did you have a dental visit in the last 12 months?: Yes Did you have a dental problem in the last 6 months where you did not have access to dental care?: No Was dental information given to patient?: Patient has dentist HPI 6 Month F/U Labs HPI Details Patient comes in today for her follow up visit - has not been seen since June 2022 Relates that she came in for her appointment in November 2022 but was reportedly advised that she was not in the office schedule for that day even though she had a card indicating her appointment then - was eventually rescheduled to today States that she currently feels okay She denies any headaches or dizziness Denies any chest pains, no SOB No nausea/vomiting, no abdominal pain No change in bowel habits noted States that she had her follow up labs done back in late October 2022 but as she never got to follow up in November 2022, did not have any other more recent labs done since [facility] Medical History Nicotine dependence, cigarettes, uncomplicated Morbid obesity with BMI of 40.0-44.9, adult Major depression, recurrent Anxiety Mixed stress and urge urinary incontinence Post herpetic neuralgia Osteopenia (~2019) Vitamin D deficiency Allergic rhinitis Impaired fasting glucose Pure hypercholesterolemia Gastritis Surgical History History of cataract surgery History of foot surgery History of bunionectomy Family History Father Diabetes Brain tumor Mother COPD (chronic obstructive pulmonary disease) Emphysema lung Brother Colon cancer Social History Household Members Other:: fiance Housing: House Are you a primary manager wound care to a significant other at home: No Do you presently have visiting nurse or other home services: No Alcohol intake: current Alcohol intake frequency: a few times a week Alcohol type: beer Patient Tobacco Use Status: Current everyday Tobacco user Tobacco use type: Cigarette Cigarette Packs Per Day: 0.5 Cigarettes Per Day: 4 Years Smoked: 40 e-Cigarette/Vaping Use: Never Used Second Hand Smoke Exposure: Yes service: No Current occupational status: employed 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 1. Little interest or pleasure in doing things: not at all 2. Feeling down, depressed, or hopeless: not at all 3. Trouble falling or staying asleep, or sleeping too much: not at all 4. Feeling tired or having little energy: more than half the days 5. Poor appetite or overeating: more than half the days 6. Feeling bad about yourself - or that you are a failure or have let yourself or your family down: more than half the days 7. Trouble concentrating on things, such as reading the newspaper or watching television: more than half the days 8. Moving or speaking so slowly that other people could have noticed. Or the opposite - being so fidgety or restless that you have been moving around a lot more than usual: not at all 9. Thoughts that you would be better off or of hurting yourself in some way: not at all Total score: 8 Depression Screening Interpretation: Positive Depression Screening Follow-up: Existing condition and In treatment Depression Screening Done: Yes 28228 - PHQ-9 Billing: Yes Source: Developed by Drs. Humberto Mcgill, Rachele Marcus, Ramsey Cuadra and colleagues, with an educational asif from [employer]. Thrive Questionnaire Date Thrive assessed: 05/03/23 I am a: Patient What is your living situation today?: I have a steady place to live Within the past 12 months, did the food you bought not last and you didn't have the money to get more?: Never true Within the past 12 months, did you worry whether your food would run out before you got money to buy more?: Never true Do you have trouble paying for medicines?: No Do you have trouble getting transportation to medical appointments?: No Do you have trouble paying your heating and electricity bill?: No Do you have trouble taking care of your child, family member or friend?: No Do you have trouble with day-to-day activities such as bathing, preparing meals, shopping, managing finances, etc.?: No Are you currently unemployed and looking for a job?: No Are you interested in more education?: No Please select the resources that you would like help with: None Currently or been in a relationship where the following occur: no concerns reported AUDIT C Alcohol Use Questionnaire (AUDIT-C) 1. How often do you have a drink containing alcohol?: Monthly or less 2. How many drinks containing alcohol do you have on a typical day when you are drinking?: 1 or 2 Total Score: 1 Score Reviewed/Action Taken: Yes ALMA-7 AMB Questionnaire ALMA-7 Date ALMA - 7 assessed: 05/03/23 Feeling nervous, anxious, or on edge: 3 = Nearly every day Not being able to stop or control worryin = Not at all Worrying too much about different things: 1 = Several days Trouble relaxin = Several days Being so restless that it is hard to sit still: 0 = Not at all Becoming easily annoyed or irritable: 1 = Several days Feeling afraid as if something awful might happen: 0 = Not at all Total ALMA-7 score (0-4 normal; 5-9 mild; 10-14 moderate; 15-21 severe): 6 Source: Developed by Drs. Humberto Mcgill, Rachele Marcus, Ramsey Cuadra and colleagues, with an educational asif from [employer]. Review of Systems Const Denies chills, Denies fatigue, Denies fever(s) and Denies headache(s) ENT Denies dysphagia, Denies dizziness, Denies otalgia, Denies headache(s), Denies neck pain, Denies odynophagia and Denies sore throat Card Denies chest pain, Denies palpitations and Denies dyspnea Resp Denies chest congestion, Denies cough, Denies dyspnea and Denies wheezing GI Denies abdominal pain, Denies constipation, Denies dysphagia, Denies heartburn, Denies diarrhea, Denies nausea, Denies odynophagia and Denies vomiting Denies difficulty voiding, Denies nocturia, Denies dysuria and Denies urinary urgency Musc Denies back pain, Denies neck pain and Denies radiating pain into limb Skin/Breast Denies rash Neuro Denies dizziness and Denies headache(s) Psych Reports depression Endo Denies fatigue and Denies palpitations Aller/Immun Denies wheezing Physical exam (Primary Care) Vital Signs: Last Vital Signs Pulse 88 05/03/23 13:19 BP 118/76 05/03/23 13:19 Pulse Ox 96 05/03/23 13:19 Oxygen Delivery Method Room Air 05/03/23 13:19 BMI result Body Mass Index 42.3 Tobacco/Smoking Status: Tobacco use Status Tobacco use date assessed 05/03/23 05/03/23 13:26 Patient Tobacco Use Status Current everyday Tobacco 05/03/23 13:26 Tobacco use type Cigarette 05/03/23 13:26 e-Cigarette/Vaping Use Never Used 05/03/23 13:26 PHQ-9: PHQ-9 Score PHQ-9: Total score 8 05/03/23 13:56 Depression Screening Interpretation: Positive Depression Screening Follow-up: Existing condition and In treatment Thrive Assessment: Date of Thrive Assessment Date Thrive assessed 05/03/23 05/03/23 13:26 Currently or been in a relationship where the following occur: no concerns reported Const General: no acute distress and alert HENMT Ears: TM's normal bilaterally and EAC's normal Throat: Yes posterior oropharynx normal and Yes tonsils normal (no TP congestion) Neck Neck: Yes no lymphadenopathy and Yes supple Thyroid: Thyroid normal Resp Auscultation: clear to auscultation bilaterally, no rales and no wheezes Cardio Rate: regular rate Rhythm: regular rhythm Heart sounds: no murmurs GI Palpation (GI): Soft to palpation and nontender Auscultation: normal bowel sounds General: Yes no CVA tenderness Back/Spine/Pelvis Back: no CVA tenderness Cervical Spine: No Cervical spine tenderness Thoracic/Lumbar Spine: No lumbar spinal tenderness Sacroiliac joints: bilaterally nontender Skin Rashes: no rashes Extrem General: Yes no clubbing, cyanosis or edema Results Reviewed Results Reviewed: Laboratory Tests 06/16/22 11/12/22 08:48 10:51 WBC 5.7 Hgb 14.1 Hct 43.7 Plt Count 247 D Sodium 141 Potassium 4.2 Creatinine 0.81 Estimated GFR > 60 Fasting Glucose 121 H Hemoglobin A1c % 5.9 5.8 Calcium 10.0 AST 22 ALT 36 H Triglycerides 110 Cholesterol 181 LDL Cholesterol, Calc 98 HDL Cholesterol 61 Assessment and Plan Assessment & Plan (1) Pure hypercholesterolemia: Code(s): E78.00 - Pure hypercholesterolemia, unspecified Plan: Results of her labs done back in October 2022 reviewed and discussed with patient - is advised that her cholesterol levels have improved from previous Reinforced low cholesterol diet Continue Atorvastatin 40 mg QD Will recheck her labs and fasting lipids in 4 months for follow up (2) Impaired fasting glucose: Code(s): R73.01 - Impaired fasting glucose Plan: FBS was again elevated at 121 mg/dl on her labs back in October 2022 but her HgbA1c was acceptable at 5.8% (was previously at 5.9% earlier last year) Reinforced low calorie diet/exercise as tolerated (3) Gastritis: Code(s): K29.70 - Gastritis, unspecified, without bleeding Qualifiers: Chronicity: unspecified Gastritis bleeding: without bleeding Gastritis type: unspecified gastritis Qualified Code(s): K29.70 - Gastritis, unspecified, without bleeding Plan: Reinforced dietary restrictions Continue Omeprazole 20 mg QD PRN (4) COPD (chronic obstructive pulmonary disease): Code(s): J44.9 - Chronic obstructive pulmonary disease, unspecified Qualifiers: COPD type: emphysema Emphysema type: unspecified Qualified Code(s): J43.9 - Emphysema, unspecified Plan: Her CT lung screening last year revealed (+) findings of pulmonary emphysema Patient is still actively smoking and she is again encouraged to quit Continue Albuterol HFA 1 to 2 inhalations Q 6 hours PRN for now Discussed that she will probably need to have PFTs done at some point to further assess her respiratory condition (5) Vitamin D deficiency: Code(s): E55.9 - Vitamin D deficiency, unspecified Plan: Continue Vitamin D and calcium supplements daily (6) Osteopenia: Onset Date: ~2019 Comment: (Bone Dexa Femoral T-score: -2.2 on 11/28/2019) Code(s): M85.80 - Other specified disorders of bone density and structure, unspecified site Qualifiers: Osteopenia location: unspecified Qualified Code(s): M85.80 - Other specified disorders of bone density and structure, unspecified site Plan: Baseline BMD done back in November 2019 showed (+) findings of osteopenia Patient again encouraged to exercise regularly and to continue Vitamin D and Calcium supplements daily Will recheck BMD later this year for follow up (7) Post herpetic neuralgia: Code(s): B02.29 - Other postherpetic nervous system involvement Plan: Continue Acyclovir 200 mg every 12 hours as needed as instructed for breakthrough symptoms (8) Mixed stress and urge urinary incontinence: Code(s): N39.46 - Mixed incontinence Plan: Oxybutynin ER previously did not help Will consider referral to urology if her symptoms get worse or progress (9) Right sided sciatica: Code(s): M54.31 - Sciatica, right side Plan: Resolved Patient was previously sent for x-rays of the lumbar spine and right hip for further evaluation but as her symptoms gradually subsided and resolved, she did not get these done (10) Anxiety: Code(s): F41.9 - Anxiety disorder, unspecified Plan: Continue Clonazepam 0.5 mg 1/2 to 1 tablet once a day as needed Is on Fluoxetine, which also helps with her anxiety (11) Major depression, recurrent: Code(s): F33.9 - Major depressive disorder, recurrent, unspecified Qualifiers: Active/Remission status: currently active Major depression episode severity: unspecified Qualified Code(s): F33.9 - Major depressive disorder, recurrent, unspecified Plan: Continue Fluoxetine 20 mg 2 capsules (40 mg) QD (12) Smoker: Code(s): F17.200 - Nicotine dependence, unspecified, uncomplicated Plan: CT lung screening done in April 2021 came out benign although it showed (+) findings of pulmonary emphysema Patient counseled again on smoking cessation (13) Morbid obesity with BMI of 40.0-44.9, adult: Code(s): E66.01 - Morbid (severe) obesity due to excess calories; Z68.41 - Body mass index [BMI] 40.0-44.9, adult Plan: Reinforced diet/exercise as tolerated/lose weight Patient has been referred to Weight Management to help her try to lose some weight Plan Follow up in 4 months Orders: Orders Complete Blood Count Auto Diff 4 Months I10 - Essential (primary) hypertension Comprehensive Mobile. Panel Fast 4 Months E78.00 - Pure hypercholesterolemia, unspecified Lipid Panel 4 Months E78.00 - Pure hypercholesterolemia, unspecified Coding Level of Care Code Est Pt Level 4 (30157) Diagnoses Pure hypercholesterolemia E78.00 Impaired fasting glucose R73.01 Gastritis without bleeding, unspecified chronicity, unspecified gastritis type K29.70 Chronicity: unspecified Gastritis bleeding: without bleeding Gastritis type: unspecified gastritis Pulmonary emphysema, unspecified emphysema type J43.9 COPD type: emphysema Emphysema type: unspecified Vitamin D deficiency E55.9 Osteopenia, unspecified location M85.80 Osteopenia location: unspecified Post herpetic neuralgia B02.29 Mixed stress and urge urinary incontinence N39.46 Right sided sciatica M54.31 Anxiety F41.9 Episode of recurrent major depressive disorder, unspecified depression episode severity F33.9 Active/Remission status: currently active Major depression episode severity: unspecified Smoker F17.200 Morbid obesity with BMI of 40.0-44.9, adult E66.01; Z68.41
== END 2023-05-03 13:58 | disposition home or self-care (01) ==
PROVIDERS: PCP Internal Medicine; Visit Provider Internal Medicine
DX: J43.9 Emphysema, unspecified (principal); F33.9 Major depressive disorder, recurrent, unspecified; E66.01 Morbid (severe) obesity due to excess calories; Z68.41 Body mass index [BMI] 40.0-44.9, adult; E78.00 Pure hypercholesterolemia, unspecified; R73.01 Impaired fasting glucose; K29.70 Gastritis, unspecified, without bleeding; E55.9 Vitamin D deficiency, unspecified; M85.80 Other specified disorders of bone density and structure, unspecified site; B02.29 Other postherpetic nervous system involvement; N39.46 Mixed incontinence; M54.31 Sciatica, right side
CPT/HCPCS: 99214

== ENCOUNTER 2023-08-04 10:02 | Outpatient (REF) | payer OTHER, SELFPAY ==
--- NOTE | ~2023-08-04 | CT_ITS ---
EXAMINATION: CT CHEST SCREENING CLINICAL INFORMATION: Current smoker. One pack per day. History of 50 pack years COMPARISON: CT lung screening 07/09/2022. TECHNIQUE: Multidetector volumetric CT imaging of the chest is performed without contrast using low dose technique. Additional 2D coronal and sagittal reformatted images and axial 3D maximum intensity projection (MIP) images are generated on the CT workstation. This CT examination was performed using dose optimization techniques as appropriate, variously including the following: *Automated exposure control *Adjustment of mA and/or kV according to patient size (this includes techniques or standardized protocols for targeted exams where dose is matched to indication/reason for exam; i.e. extremities or head) *Use of iterative reconstruction technique DLP: 67 mGy-cm FINDINGS: LUNGS: There is mild emphysema and bronchial thickening. Some cystic changes along the major fissure in the left upper lobe are unchanged (5:179 compare prior 5:204). Some tiny 2 mm micronodules are unchanged (5:56, 71 and 90). The lungs are clear with no evidence of inflammation or new, increasing size or worrisome nodules. MEDIASTINUM: The mediastinum is normal. CORONARY ARTERY CALCIFICATION: Mild. PLEURA: There is no pleural effusion. No pleural mass or thickening. AXILLA: No lymphadenopathy. UPPER ABDOMEN: Unremarkable. On today's study, the liver attenuation is greater than the spleen suggesting some improvement in previously seen hepatic steatosis. OSSEOUS STRUCTURES: Unremarkable. CT/CT lung screening IMPRESSION: No concerning evidence for malignancy. Some tiny unchanged micronodules. Mild emphysema and bronchial wall thickening. ASSESSMENT: Lung-RADS category 2: Benign. RECOMMENDATION: Routine annual low-dose CT screening in 12 months.
== END 2023-08-04 10:03 | disposition home or self-care (01) ==
LOC: HO.CT 10:02
PROVIDERS: PCP Internal Medicine; Visit Provider Nurse Practitioner Family
DX: Z12.2 Encounter for screening for malignant neoplasm of respiratory organs (principal); F17.210 Nicotine dependence, cigarettes, uncomplicated
CPT/HCPCS: 71271

== ENCOUNTER 2023-08-06 08:28 | Outpatient (REF) | payer OTHER, SELFPAY ==
[2023-08-06 11:33] LABS: MANUAL DIFF FLAG NO
[2023-08-06 11:38] LABS: Basophils Percent Auto 0.5 % (0-2); Eosinophils Absolute Auto 0.1 X10*3/uL (0.0-0.4); Eosinophils Percent Auto 2.2 % (0-4); Hemoglobin 13.8 g/dl (12.0-16.0); Imm Gran Abs Auto 0.01 X10*3/uL (0.00-0.03); Imm Gran Pct Auto 0.2 % (0.0-0.4); Lymphocytes Absolute Auto 1.7 X10*3/uL (1.2-4.9); Lymphocytes Percent Auto 27.7 % (20-40); Mean Corpuscular HGB Conc 33.7 g/dl (31.0-35.0); Mean Corpuscular Hemoglobin 31.4 pg (27.0-33.0); Mean Corpuscular Volume 93.2 fL (80.0-98.0); Mean Platelet Volume 9.8 fL (9.4-12.3); Monocytes Absolute Auto 0.4 X10*3/uL (0.1-1.2); Monocytes Percent Auto 7.4 % (2-11); Neutrophils Absolute Auto 3.7 x10*3/uL (2.0-8.3); Platelet Count 300 X10*3/uL (160-400); Red Cell Distribution Width 12.4 % (11.0-16.0)
[2023-08-06 11:56] LABS: Alanine Aminotransferase 28 U/L (0-31); Albumin Level 4.5 g/dL (3.5-5.0); Alkaline Phosphatase 45 U/L (39-117); Anion Gap 12 (12-20); Aspartate Amino Transferase 17 U/L (5-31); Bilirubin Total 0.7 mg/dL (0.0-1.0); Blood Urea Nitrogen 18 mg/dL (9-16); Calcium 9.7 mg/dL (8.4-10.2); Carbon Dioxide 24 mmol/L (22-29); Chloride 109 mmol/L (96-108); Cholesterol 150 mg/dL (<200); Estimated Glomerular Filt Rate > 60; Glucose Fasting 114 mg/dL (60-99); HDL Cholesterol 44 mg/dL (>40); LDL Cholesterol Calculated 89 mg/dL (<100); Potassium 4.1 mmol/L (3.3-5.1); Sodium 141 mmol/L (135-145); Total Protein 7.2 g/dL (6.5-8.0); Triglycerides 89 mg/dL (<150)
== END 2023-08-06 08:29 | disposition home or self-care (01) ==
LOC: HO.HMGCLDS 08:28
PROVIDERS: PCP Internal Medicine; Visit Provider Internal Medicine
DX: I10 Essential (primary) hypertension (principal); E78.00 Pure hypercholesterolemia, unspecified
CPT/HCPCS: 36415; 80053; 80061; 85025

== ENCOUNTER 2023-09-06 09:28 | Outpatient (AMB) | payer OTHER, SELFPAY ==
[2023-09-06 09:30] VITALS: BP 156/90; PULSE 70; O2SAT 98; BMI 38.9
--- NOTE | 2023-09-06 09:30 | A.OFFPC_ITS ---
Vital Signs 09/06/23 09:30 09/06/23 09:52 Height 5 ft 1 in Weight 206 lb BMI 38.9 BP 156/90 H 148/94 H Blood Pressure Location Lt brachial Lt brachial Position Sitting Sitting Pulse 70 Pulse Source Pulse Oximeter Pulse Oximetry (%) 98 Oxygen Delivery Method Room Air Intake Visit Reasons: 4 month f/u Computational Geneticist Required: No Cashier Parking Lot: Not Required per policy Accompanied by: Self / Same As Patient Allergies Seasonal Allergy (Unknown, Uncoded 09/06/23 09:39) unknown trees and pollen Allergy (Unknown, Uncoded 09/06/23 09:39) unknown Medication List - Last Reconciled 09/06/23 by Jose David Weeks MD acetaminophen (Tylenol) 325 mg PO QID PRN acyclovir 200 mg PO Q12H PRN 7 days albuterol sulfate 90 mcg/actuation 2 puffs inhalation Q6H PRN aspirin 81 mg PO DAILY atorvastatin 40 mg PO BEDTIME 90 days clonazepam 0.5 mg PO DAILY PRN 30 days fluoxetine 40 mg (2 x 20 mg) PO DAILY 90 days fluticasone propionate 50 mcg/actuation 2 sprays intranasal DAILY 30 days ibuprofen 800 mg PO Q8H PRN 30 days omeprazole 20 mg PO DAILY semaglutide 1 mg subcut QWEEK Ventolin HFA 90 mcg/actuation (albuterol sulfate) 2 puffs inhalation Q6H PRN NS Tobacco use date assessed: 05/03/23 Dental Screening Dental Screen Date: 05/03/23 HPI 4 month f/u HPI Details Patient comes in today for her follow up visit States that she feels okay She denies any headaches or dizziness Denies any chest pains, no SOB No nausea/vomiting, no abdominal pain No change in bowel habits noted She was started on Semaglutide injections by weight management a few weeks ago and has since lost at least 18 pounds of her weight Had her follow up labs done last month - to discuss her results [facility] Medical History Obesity (BMI 30-39.9) Nicotine dependence, cigarettes, uncomplicated Morbid obesity with BMI of 40.0-44.9, adult Major depression, recurrent Anxiety Mixed stress and urge urinary incontinence Post herpetic neuralgia Osteopenia (~2019) Vitamin D deficiency Allergic rhinitis Impaired fasting glucose Pure hypercholesterolemia Gastritis Surgical History History of cataract surgery History of foot surgery History of bunionectomy Family History Father Diabetes Brain tumor Mother COPD (chronic obstructive pulmonary disease) Emphysema lung Brother Colon cancer Social History Household Members Other:: fiance Housing: House Are you a primary campground caretaker to a significant other at home: No Do you presently have visiting nurse or other home services: No Alcohol intake: current Alcohol intake frequency: a few times a week Alcohol type: beer Patient Tobacco Use Status: Current everyday Tobacco user Tobacco use type: Cigarette Cigarette Packs Per Day: 0.5 Cigarettes Per Day: 4 Years Smoked: 40 e-Cigarette/Vaping Use: Never Used Second Hand Smoke Exposure: Yes service: No Current occupational status: employed 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 Depression Screening Interpretation: Positive Depression Screening Follow-up: Existing condition and In treatment Depression Screening Done: Yes Source: Developed by Drs. Humberto Mcgill, Rachele Marcus, Ramsey Cuadra and colleagues, with an educational asif from [employer]. Thrive Questionnaire Date Thrive assessed: 05/03/23 Currently or been in a relationship where the following occur: no concerns reported THRIVE Score: 0 ALMA-7 AMB Questionnaire ALMA-7 Date ALMA - 7 assessed: 05/03/23 Source: Developed by Rachele Ospina, Ramsey Cuadra and colleagues, with an educational asif from [employer]. Review of Systems Const Denies chills, Denies fatigue, Denies fever(s) and Denies headache(s) ENT Denies dysphagia, Denies dizziness, Denies otalgia, Denies headache(s), Denies neck pain, Denies odynophagia and Denies sore throat Card Denies chest pain, Denies palpitations and Denies dyspnea Resp Denies chest congestion, Denies cough, Denies dyspnea and Denies wheezing GI Denies abdominal pain, Denies constipation, Denies dysphagia, Denies heartburn, Denies diarrhea, Denies nausea, Denies odynophagia and Denies vomiting Denies difficulty voiding, Denies nocturia, Denies dysuria and Denies urinary urgency Musc Denies back pain, Denies neck pain and Denies radiating pain into limb Skin/Breast Denies rash Neuro Denies dizziness and Denies headache(s) Psych Reports depression (better controlled) Endo Denies fatigue and Denies palpitations Aller/Immun Denies wheezing Physical exam (Primary Care) Vital Signs: Last Vital Signs Pulse 70 09/06/23 09:30 BP 156/90 H 09/06/23 09:30 Pulse Ox 98 09/06/23 09:30 Oxygen Delivery Method Room Air 09/06/23 09:30 BMI result Body Mass Index 38.9 Tobacco/Smoking Status: Tobacco use Status Tobacco use date assessed 05/03/23 09/06/23 09:31 Patient Tobacco Use Status Current everyday Tobacco 09/06/23 09:31 Tobacco use type Cigarette 09/06/23 09:31 e-Cigarette/Vaping Use Never Used 09/06/23 09:31 Depression Screening Interpretation: Positive Depression Screening Follow-up: Existing condition and In treatment Thrive Assessment: Date of Thrive Assessment Date Thrive assessed 05/03/23 09/06/23 09:31 Currently or been in a relationship where the following occur: no concerns reported Const General: no acute distress and alert HENMT Ears: TM's normal bilaterally and EAC's normal Throat: Yes posterior oropharynx normal and Yes tonsils normal (no TP congestion) Neck Neck: Yes no lymphadenopathy and Yes supple Thyroid: Thyroid normal Resp Auscultation: clear to auscultation bilaterally, no rales and no wheezes Cardio Rate: regular rate Rhythm: regular rhythm Heart sounds: no murmurs GI Palpation (GI): Soft to palpation and nontender Auscultation: normal bowel sounds General: Yes no CVA tenderness Back/Spine/Pelvis Back: no CVA tenderness Cervical Spine: No Cervical spine tenderness Thoracic/Lumbar Spine: No lumbar spinal tenderness Skin Rashes: no rashes Extrem General: Yes no clubbing, cyanosis or edema Results Reviewed Results Reviewed: Laboratory Tests 08/06/23 08:30 WBC 6.0 Hgb 13.8 Hct 41.0 Plt Count 300 Sodium 141 Potassium 4.1 Creatinine 0.73 Estimated GFR > 60 Fasting Glucose 114 H Calcium 9.7 AST 17 ALT 28 Triglycerides 89 Cholesterol 150 LDL Cholesterol, Calc 89 HDL Cholesterol 44 Assessment and Plan Assessment & Plan (1) Pure hypercholesterolemia: Code(s): E78.00 - Pure hypercholesterolemia, unspecified Plan: Results of her labs done last month reviewed and discussed with patient Reinforced low cholesterol diet Continue Atorvastatin 40 mg QD Will recheck her labs and fasting lipids in 4 months for follow up (2) Impaired fasting glucose: Code(s): R73.01 - Impaired fasting glucose Plan: Her FBS was still elevated at 114 mg/dl on her labs done last month but her HgbA1c was acceptable at 5.8% and 5.9% when previously checked) Reinforced low calorie diet/exercise as tolerated Discussed that since she has been started on Semaglutide (for weight loss), this should also help with her glycemic control and we anticipate that her FBS and HgbA1c will be lower when rechecked again in a few months (3) Gastritis: Code(s): K29.70 - Gastritis, unspecified, without bleeding Qualifiers: Gastritis type: unspecified gastritis Chronicity: unspecified Gastritis bleeding: without bleeding Qualified Code(s): K29.70 - Gastritis, unspecified, without bleeding Plan: Reinforced dietary restrictions Continue Omeprazole 20 mg QD PRN (4) COPD (chronic obstructive pulmonary disease): Code(s): J44.9 - Chronic obstructive pulmonary disease, unspecified Qualifiers: COPD type: emphysema Emphysema type: unspecified Qualified Code(s): J43.9 - Emphysema, unspecified Plan: Her CT lung screening last year revealed (+) findings of pulmonary emphysema Patient is still actively smoking and she is again encouraged to quit Continue Albuterol HFA 1 to 2 inhalations Q 6 hours PRN for now She has been advised that she will likely need to have PFTs done at some point to further assess her respiratory status (5) Elevated blood pressure reading in office without diagnosis of hypertension: Code(s): R03.0 - Elevated blood-pressure reading, without diagnosis of hypertension Plan: Reinforced low sodium diet Advised that her BP readings are high today even after it was rechecked a few minutes after her initial BP was logged Will have her follow up with our nurse navigators in a couple of weeks for BP recheck Patient is also advised to try monitoring her BP regularly on her own - goal is systolic BP of at least 120 to 130 mm or less (6) Vitamin D deficiency: Code(s): E55.9 - Vitamin D deficiency, unspecified Plan: Continue Vitamin D and calcium supplements daily (7) Osteopenia: Onset Date: ~2019 Comment: (Bone Dexa Femoral T-score: -2.2 on 11/28/2019) Code(s): M85.80 - Other specified disorders of bone density and structure, unspecified site Qualifiers: Osteopenia location: unspecified Qualified Code(s): M85.80 - Other specified disorders of bone density and structure, unspecified site Plan: Baseline BMD done back in November 2019 showed (+) findings of osteopenia Patient again encouraged to exercise regularly and to continue Vitamin D and Calcium supplements daily Will recheck BMD later this year for follow up (8) Post herpetic neuralgia: Code(s): B02.29 - Other postherpetic nervous system involvement Plan: Continue Acyclovir 200 mg every 12 hours as needed as instructed for breakthrough symptoms (9) Mixed stress and urge urinary incontinence: Code(s): N39.46 - Mixed incontinence Plan: Oxybutynin ER previously did not help Will consider referral to urology if her symptoms get worse or progress (10) Anxiety: Code(s): F41.9 - Anxiety disorder, unspecified Plan: Continue Clonazepam 0.5 mg 1/2 to 1 tablet once a day as needed Is on Fluoxetine, which also helps with her anxiety (11) Major depression, recurrent: Code(s): F33.9 - Major depressive disorder, recurrent, unspecified Qualifiers: Active/Remission status: currently active Major depression episode severity: unspecified Qualified Code(s): F33.9 - Major depressive disorder, recurrent, unspecified Plan: Continue Fluoxetine 20 mg 2 capsules (40 mg) QD (12) Smoker: Code(s): F17.200 - Nicotine dependence, unspecified, uncomplicated Plan: CT lung screening done in April 2021 came out benign although it showed (+) findings of pulmonary emphysema Patient counseled again on smoking cessation (13) Obesity (BMI 30-39.9): Code(s): E66.9 - Obesity, unspecified Plan: Reinforced diet/exercise as tolerated/lose weight Follow up with Weight Management as scheduled She has been able to lose at least 18 pounds since her last visit - she has been started on Semaglutide injections weekly by weight management a few weeks ago Plan Follow up in 4 months Orders: Orders Complete Blood Count Auto Diff 4 Months D64.9 - Anemia, unspecified Lipid Panel 4 Months E78.00 - Pure hypercholesterolemia, unspecified Comprehensive [place]. Panel Fast 4 Months E78.00 - Pure hypercholesterolemia, unspecified Hemoglobin A1c 4 Months R73.01 - Impaired fasting glucose TSH reflex Free T4 4 Months E78.00 - Pure hypercholesterolemia, unspecified UA CC w/rflx Micro + Cult 4 Months R30.0 - Dysuria Vitamin D 25-OH Total 4 Months E55.9 - Vitamin D deficiency, unspecified Coding Level of Care Code Est Pt Level 4 (61208) Diagnoses Pure hypercholesterolemia E78.00 Impaired fasting glucose R73.01 Gastritis without bleeding, unspecified chronicity, unspecified gastritis type K29.70 Gastritis type: unspecified gastritis Chronicity: unspecified Gastritis bleeding: without bleeding Pulmonary emphysema, unspecified emphysema type J43.9 COPD type: emphysema Emphysema type: unspecified Elevated blood pressure reading in office without diagnosis of hypertension R03.0 Vitamin D deficiency E55.9 Osteopenia, unspecified location M85.80 Osteopenia location: unspecified Post herpetic neuralgia B02.29 Mixed stress and urge urinary incontinence N39.46 Anxiety F41.9 Episode of recurrent major depressive disorder, unspecified depression episode severity F33.9 Active/Remission status: currently active Major depression episode severity: unspecified Smoker F17.200 Obesity (BMI 30-39.9) E66.9
[2023-09-06 09:52] VITALS: BP 148/94
== END 2023-09-06 10:02 | disposition home or self-care (01) ==
PROVIDERS: PCP Internal Medicine; Visit Provider Internal Medicine
DX: E78.00 Pure hypercholesterolemia, unspecified (principal); J43.9 Emphysema, unspecified; F33.9 Major depressive disorder, recurrent, unspecified; R73.01 Impaired fasting glucose; K29.70 Gastritis, unspecified, without bleeding; R03.0 Elevated blood-pressure reading, without diagnosis of hypertension; E55.9 Vitamin D deficiency, unspecified; M85.80 Other specified disorders of bone density and structure, unspecified site; B02.29 Other postherpetic nervous system involvement; N39.46 Mixed incontinence; F41.9 Anxiety disorder, unspecified; F17.200 Nicotine dependence, unspecified, uncomplicated
CPT/HCPCS: 99214

== ENCOUNTER 2023-10-21 09:43 | Outpatient (REF) | payer OTHER, SELFPAY | END 2023-10-21 09:44 | disposition home or self-care (01) | LOC: HO.MAMMO 09:43 | PROVIDERS: PCP Internal Medicine; Visit Provider Internal Medicine | DX: Z12.31 Encounter for screening mammogram for malignant neoplasm of breast (principal) | CPT/HCPCS: 77063; 77067 ==

== ENCOUNTER → 2023-10-21 09:45 | Outpatient (BNV) | payer OTHER, SELFPAY | PROVIDERS: PCP Internal Medicine; Visit Provider Radiology Diagnostic Radiology | DX: Z12.31 Encounter for screening mammogram for malignant neoplasm of breast (principal) | CPT/HCPCS: 77063; 77067 ==

== ENCOUNTER 2023-11-15 09:06 | Outpatient (AMB) | payer OTHER, SELFPAY ==
[2023-11-15 09:19] VITALS: BP 130/80; PULSE 80; TEMP 36.9; O2SAT 95; BMI 37.5
--- NOTE | 2023-11-15 09:19 | MHC.PC.OV ---
Vital Signs 11/15/23 09:19 Height 5 ft 1 in Intake Visit Reasons: EP head cold 2 weeks Allergies Seasonal Allergy (Unknown, Uncoded 09/06/23 09:39) unknown trees and pollen Allergy (Unknown, Uncoded 09/06/23 09:39) unknown Tobacco use date assessed: 11/15/23 Dental Screening Dental Screen Date: 11/15/23 Did you have a dental visit in the last 12 months?: Yes Did you have a dental problem in the last 6 months where you did not have access to dental care?: No Was dental information given to patient?: Patient has dentist [facility] Medical History Obesity (BMI 30-39.9) Nicotine dependence, cigarettes, uncomplicated Morbid obesity with BMI of 40.0-44.9, adult Major depression, recurrent Anxiety Mixed stress and urge urinary incontinence Post herpetic neuralgia Osteopenia (~2020) Vitamin D deficiency Allergic rhinitis Impaired fasting glucose Pure hypercholesterolemia Gastritis Surgical History History of cataract surgery History of foot surgery History of bunionectomy Family History Father Diabetes Brain tumor Mother COPD (chronic obstructive pulmonary disease) Emphysema lung Brother Colon cancer Social History Household Members Other:: fiance Housing: House Are you a primary pharmacy customer care specialist to a significant other at home: No Do you presently have visiting nurse or other home services: No Alcohol intake: current Alcohol intake frequency: a few times a week Alcohol type: beer Patient Tobacco Use Status: Current everyday Tobacco user Tobacco use type: Cigarette Cigarette Packs Per Day: 0.5 Cigarettes Per Day: 4 Years Smoked: 40 e-Cigarette/Vaping Use: Never Used Second Hand Smoke Exposure: Yes service: No Current occupational status: employed 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 Humberto Mcgill, Rachele Marucs, Ramsey Cuadra and colleagues, with an educational asif from [employer]. Physical exam (Primary Care) Tobacco/Smoking Status: Tobacco use Status Tobacco use date assessed 05/03/23 09/06/23 09:31 Patient Tobacco Use Status Current everyday Tobacco 09/06/23 09:31 Tobacco use type Cigarette 09/06/23 09:31 e-Cigarette/Vaping Use Never Used 09/06/23 09:31 Thrive Assessment: Date of Thrive Assessment Date Thrive assessed 05/03/23 10/13/23 09:37 Coding
--- NOTE | 2023-11-15 09:36 | AM.OFFWIN_ITS ---
Intake Vital Signs 11/15/23 09:19 Height 5 ft 1 in Weight 198 lb 8 oz BMI 37.5 BP 130/80 Blood Pressure Location Lt brachial Position Sitting Pulse 80 Pulse Source Pulse Oximeter Temp 98.4 F Temp Source Oral Pulse Oximetry (%) 95 Oxygen Delivery Method Room Air Intake Visit Reasons: EP head cold 2 weeks Patient Tobacco Use Status: Current everyday Tobacco user Allergies Seasonal Allergy (Unknown, Uncoded 09/06/23 09:39) unknown trees and pollen Allergy (Unknown, Uncoded 09/06/23 09:39) unknown Do you need a note to return to daycare/school/sports/work: No HPI HPI Comments History of Present Illness Details Patient is a 63yo F who presents to office with congestion/cough Ongoing x 2 weeks Initial fever and chiills which have resolved + frontal heaache, runny nose and dry co ugh No ear pain or ST No CP or SOB Mucinex and Sudafed without relief No other complaints PFSH Medical History Obesity (BMI 30-39.9) Nicotine dependence, cigarettes, uncomplicated Morbid obesity with BMI of 40.0-44.9, adult Major depression, recurrent Anxiety Mixed stress and urge urinary incontinence Post herpetic neuralgia Osteopenia (~2019) Vitamin D deficiency Allergic rhinitis Impaired fasting glucose Pure hypercholesterolemia Gastritis Surgical History History of cataract surgery History of foot surgery History of bunionectomy Family History Father Diabetes Brain tumor Mother COPD (chronic obstructive pulmonary disease) Emphysema lung Brother Colon cancer Social History Household Members Other:: fiance Housing: House Are you a primary managed care specialist to a significant other at home: No Do you presently have visiting nurse or other home services: No Alcohol intake: current Alcohol intake frequency: a few times a week Alcohol type: beer Patient Tobacco Use Status: Current everyday Tobacco user Tobacco use type: Cigarette Cigarette Packs Per Day: 0.5 Cigarettes Per Day: 4 Years Smoked: 40 e-Cigarette/Vaping Use: Never Used Second Hand Smoke Exposure: Yes service: No Current occupational status: employed 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 Sexual orientation: Straight/Heterosexual Gender identity: Female Cognitive needs: No Hearing needs: No Vision needs: Yes (reading glasses) Review of Systems Const Denies chills, Denies fever(s) and Reports headache(s) ENT Denies dizziness, Denies otalgia, Reports headache(s), Reports nasal congestion, Reports nasal discharge, Reports sinus pain (frontal) and Denies sore throat Card Denies chest pain, Denies syncope and Denies dyspnea Resp Denies change in phlegm color, Reports cough and Denies dyspnea Musc Denies myalgias Neuro Denies dizziness, Denies syncope and Reports headache(s) Physical Exam Vital Signs: Last Vital Signs Temp 98.4 F 11/15/23 09:19 Pulse 80 11/15/23 09:19 BP 130/80 11/15/23 09:19 Pulse Ox 95 11/15/23 09:19 Oxygen Delivery Method Room Air 11/15/23 09:19 BMI result Body Mass Index 37.5 General: Non-toxic, NAD. Speaking full sentences. Skin: Warm dry throughout Eye: EOMI HENT: Airway patent. Uvula midline. No pharyngeal erythema or edema. No TECHNOLOGY EDUCATION INSTRUCTOR. Bilateral canals clear. TM non-erythematous, non-bulging. No TM perforation or hemotympanum noted. + frontal sinus tenderness to palpation bilaterally Lymph: No lymphadenopathy Respiratory: Slight decreased R base but otherwise CTA bilaterally. No wheezes, rales or rhonchi Cardiac: RRR. No murmur MSK: Full ROM extremities. Neurology: A/O. No aphasia or facial droop. Gait without abnormality Psych: Good mood and affect Assessment & Plan Assessment & Plan (1) Acute bronchitis: Code(s): J20.9 - Acute bronchitis, unspecified Qualifiers: Bronchitis organism: unspecified organism Qualified Code(s): J20.9 - Acute bronchitis, unspecified Plan: Patient seen and evaluated. Azithromycin to pharmacy F/U with PCP Patient gave verbal understanding and had no additional questions or concerns at time of discharge All questions answered Medications: New azithromycin start on day 2 of therapy 250 mg PO DAILY 6 days 6 tabs 0RF Coding Level of Care Code Est Pt Level 3 (64126) Diagnoses Acute bronchitis, unspecified organism J20.9 Bronchitis organism: unspecified organism
== END 2023-11-15 09:55 | disposition home or self-care (01) ==
PROVIDERS: PCP Internal Medicine; Visit Provider Physician Assistant
DX: J20.9 Acute bronchitis, unspecified (principal)
CPT/HCPCS: 99213

== ENCOUNTER 2023-12-31 08:34 | Outpatient (REF) | payer OTHER, SELFPAY ==
[2023-12-31 10:57] LABS: MANUAL DIFF FLAG NO
[2023-12-31 11:00] LABS: Appearance Urine Turbid; Color Urine Yellow; Glucose Urine UA Negative (Negative); Leukocyte Esterase Urine Negative (Negative); Nitrite Urine Negative (Negative); Urine Blood Negative (Negative); Urine Ketones Negative (Negative); Urine Protein Negative (Neg-Trace)
[2023-12-31 11:15] LABS: Basophils Percent Auto 0.4 % (0-2); Eosinophils Absolute Auto 0.1 X10*3/uL (0.0-0.4); Hematocrit 40.6 % (37.0-47.0); Hemoglobin 13.8 g/dl (12.0-16.0); Imm Gran Abs Auto 0.02 X10*3/uL (0.00-0.03); Imm Gran Pct Auto 0.3 % (0.0-0.4); Lymphocytes Absolute Auto 1.4 X10*3/uL (1.2-4.9); Lymphocytes Percent Auto 20.5 % (20-40); Mean Corpuscular Hemoglobin 31.9 pg (27.0-33.0); Monocytes Absolute Auto 0.4 X10*3/uL (0.1-1.2); Monocytes Percent Auto 5.5 % (2-11); Neutrophils Percent Auto 71.3 % (45-73); Red Blood Count 4.32 X10*6/uL (4.20-5.50); Red Cell Distribution Width 13.1 % (11.0-16.0)
[2023-12-31 11:22] LABS: Platelet Count 143 X10*3/uL (160-400)
[2023-12-31 11:36] LABS: Estimated Average Glucose 103 mg/dL; Hemoglobin A1c % 5.2 % (<6.0)
[2023-12-31 11:54] LABS: Alanine Aminotransferase 19 U/L (0-31); Albumin Level 4.5 g/dL (3.5-5.0); Alkaline Phosphatase 42 U/L (39-117); Anion Gap 12 (12-20); Aspartate Amino Transferase 14 U/L (5-31); Bilirubin Total 0.5 mg/dL (0.0-1.0); Blood Urea Nitrogen 20 mg/dL (9-16); Calcium 9.9 mg/dL (8.4-10.2); Carbon Dioxide 25 mmol/L (22-29); Chloride 108 mmol/L (96-108); Cholesterol 183 mg/dL (<200); Estimated Glomerular Filt Rate > 60; Glucose Fasting 113 mg/dL (60-99); HDL Cholesterol 73 mg/dL (>40); LDL Cholesterol Calculated 95 mg/dL (<100); Potassium 4.3 mmol/L (3.3-5.1); Sodium 141 mmol/L (135-145); TSH reflex Free T4 1.09 uIU/mL (0.32-4.0); Triglycerides 77 mg/dL (<150)
== END 2023-12-31 08:35 | disposition home or self-care (01) ==
LOC: HO.HMGCLDS 08:34
PROVIDERS: PCP Internal Medicine; Visit Provider Internal Medicine
DX: D64.9 Anemia, unspecified (principal); R73.01 Impaired fasting glucose; E78.00 Pure hypercholesterolemia, unspecified; R30.0 Dysuria; E55.9 Vitamin D deficiency, unspecified
CPT/HCPCS: 36415; 80053; 80061; 81003; 82306; 83036; 84443; 85025

== ENCOUNTER 2024-01-11 09:52 | Outpatient (AMB) | payer OTHER, SELFPAY ==
[2024-01-11 09:58] VITALS: BP 132/74; PULSE 78; O2SAT 93; BMI 36.9
--- NOTE | 2024-01-11 09:58 | A.OFFPC_ITS ---
Vital Signs 01/11/24 09:58 Height 5 ft 1 in Weight 195 lb 8 oz BMI 36.9 BP 132/74 Blood Pressure Location Lt brachial Position Sitting Pulse 78 Pulse Source Pulse Oximeter Pulse Oximetry (%) 93 Oxygen Delivery Method Room Air Intake Visit Reasons: hyperlipidemia, elevated BP, IFG, COPD Floor Covering Layer Required: No Accompanied by: Self / Same As Patient Allergies Seasonal Allergy (Unknown, Uncoded 01/11/24 10:44) unknown trees and pollen Allergy (Unknown, Uncoded 01/11/24 10:44) unknown Medication List - Last Reconciled 01/11/24 by Jose David Weeks MD acetaminophen (Tylenol) 325 mg PO QID PRN acyclovir 200 mg PO Q12H PRN 7 days albuterol sulfate 90 mcg/actuation 2 puffs inhalation Q6H PRN aspirin 81 mg PO DAILY atorvastatin 40 mg PO BEDTIME 90 days clonazepam 0.5 mg PO DAILY PRN 30 days fluoxetine 40 mg (2 x 20 mg) PO DAILY 90 days fluticasone propionate 50 mcg/actuation 2 sprays intranasal DAILY 30 days ibuprofen 800 mg PO Q8H PRN 30 days omeprazole 20 mg PO DAILY semaglutide 1 mg subcut QWEEK Ventolin HFA 90 mcg/actuation (albuterol sulfate) 2 puffs inhalation Q6H PRN NS Tobacco use date assessed: 01/11/24 Dental Screening Dental Screen Date: 01/11/24 Did you have a dental visit in the last 12 months?: Yes Did you have a dental problem in the last 6 months where you did not have access to dental care?: No Was dental information given to patient?: Patient has dentist HPI hyperlipidemia, elevated BP, IFG, COPD HPI Details Patient comes in today for her follow up visit States that she feels okay except for what she thinks are increased allergy symptoms lately Relates (+) recurrent nasal and sinus drainage recently, especially at night, as well as on and off non-productive cough and occasional sneezing at times lately She denies any fever or sore throat She denies any headaches or dizziness Denies any chest pains, no increased SOB No nausea/vomiting, no abdominal pain No change in bowel habits noted Adds that she has noticed a few raised skin lesions on her lower legs and she also has had some skin tags in her left axillary area and would like to see a scientific publications editor to have all of these checked out and removed if possible She also recently noticed a couple of darker skin lesions at her left axilla and would like these evaluated as well to make sure she does not have any skin cancer developing She had her follow up labs done a couple of weeks ago - to discuss her results [facility] Medical History Obesity (BMI 30-39.9) Nicotine dependence, cigarettes, uncomplicated Morbid obesity with BMI of 40.0-44.9, adult Major depression, recurrent Anxiety Mixed stress and urge urinary incontinence Post herpetic neuralgia Osteopenia (~2019) Vitamin D deficiency Allergic rhinitis Impaired fasting glucose Pure hypercholesterolemia Gastritis Surgical History History of cataract surgery History of foot surgery History of bunionectomy Family History Father Diabetes Brain tumor Mother COPD (chronic obstructive pulmonary disease) Emphysema lung Brother Colon cancer Social History Household Members Other:: fiance Housing: House Are you a primary acute care assistant to a significant other at home: No Do you presently have visiting nurse or other home services: No Alcohol intake: current Alcohol intake frequency: a few times a week Alcohol type: beer Patient Tobacco Use Status: Current everyday Tobacco user Tobacco use type: Cigarette Cigarette Packs Per Day: 0.5 Cigarettes Per Day: 4 Years Smoked: 40 e-Cigarette/Vaping Use: Never Used Second Hand Smoke Exposure: Yes service: No Current occupational status: employed 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 1. Little interest or pleasure in doing things: several days 2. Feeling down, depressed, or hopeless: several days 3. Trouble falling or staying asleep, or sleeping too much: not at all 4. Feeling tired or having little energy: not at all 5. Poor appetite or overeating: not at all 6. Feeling bad about yourself - or that you are a failure or have let yourself or your family down: not at all 7. Trouble concentrating on things, such as reading the newspaper or watching television: not at all 8. Moving or speaking so slowly that other people could have noticed. Or the o pposite - being so fidgety or restless that you have been moving around a lot more than usual: not at all 9. Thoughts that you would be better off or of hurting yourself in some way: not at all Total score: 2 Depression Screening Interpretation: Positive Depression Screening Follow-up: Existing condition and In treatment Depression Screening Done: Yes 21702 - PHQ-9 Billing: Yes Source: Developed by Drs. Humberto Mcgill, Rachele Marcus, Ramsey Cuadra and colleagues, with an educational asif from [employer]. Thrive Questionnaire Date Thrive assessed: 01/11/24 I am a: Patient What is your living situation today?: I have a steady place to live Within the past 12 months, did the food you bought not last and you didn't have the money to get more?: Never true Within the past 12 months, did you worry whether your food would run out before you got money to buy more?: Never true Do you have trouble paying for medicines?: No Do you have trouble getting transportation to medical appointments?: No Do you have trouble paying your heating and electricity bill?: No Do you have trouble taking care of your child, family member or friend?: No Do you have trouble with day-to-day activities such as bathing, preparing meals, shopping, managing finances, etc.?: No Are you currently unemployed and looking for a job?: No Are you interested in more education?: No Please select the resources that you would like help with: None Currently or been in a relationship where the following occur: No concerns reported THRIVE Score: 0 AUDIT C Alcohol Use Questionnaire (AUDIT-C) 1. How often do you have a drink containing alcohol?: Monthly or less 2. How many drinks containing alcohol do you have on a typical day when you are drinking?: 1 or 2 3. How often do you have six or more drinks on one occasion?: Never Total Score: 1 Score Reviewed/Action Taken: Yes ALMA-7 AMB Questionnaire ALMA-7 Date ALMA - 7 assessed: 01/11/24 Feeling nervous, anxious, or on edge: 0 = Not at all Not being able to stop or control worryin = Not at all Worrying too much about different things: 0 = Not at all Trouble relaxin = Not at all Being so restless that it is hard to sit still: 0 = Not at all Becoming easily annoyed or irritable: 0 = Not at all Feeling afraid as if something awful might happen: 0 = Not at all Total ALMA-7 score (0-4 normal; 5-9 mild; 10-14 moderate; 15-21 severe): 0 Source: Developed by Drs. Humberto Mcgill, Rachele Marcus, Ramsey Cuadra and colleagues, with an educational asif from [employer]. Review of Systems Const Denies chills, Denies fatigue, Denies fever(s) and Denies headache(s) ENT Denies dysphagia, Denies dizziness, Denies otalgia, Denies headache(s), Reports nasal congestion (recently, on and off), Reports nasal discharge (worse at night), Denies neck pain, Denies odynophagia and Denies sore throat Card Denies chest pain, Denies palpitations and Denies dyspnea Resp Denies chest congestion, Reports cough (on and off lately, non-productive), Denies dyspnea and Denies wheezing GI Denies abdominal pain, Denies constipation, Denies dysphagia, Denies heartburn, Denies diarrhea, Denies nausea, Denies odynophagia and Denies vomiting Denies difficulty voiding, Denies nocturia, Denies dysuria and Denies urinary urgency Musc Denies back pain, Denies neck pain and Denies radiating pain into limb Skin/Breast Details: (+) multiple skin lesions - over both legs and in the left axillary area (see HPI for details) Denies rash Neuro Denies dizziness and Denies headache(s) Psych Reports depression (better controlled) Endo Denies fatigue and Denies palpitations Aller/Immun Denies wheezing Physical exam (Primary Care) Vital Signs: Last Vital Signs Pulse 78 01/11/24 09:58 BP 132/74 01/11/24 09:58 Pulse Ox 93 01/11/24 09:58 Oxygen Delivery Method Room Air 01/11/24 09:58 BMI result Body Mass Index 36.9 Tobacco/Smoking Status: Tobacco use Status Tobacco use date assessed 01/11/24 01/11/24 10:07 Patient Tobacco Use Status Current everyday Tobacco 01/11/24 10:07 Tobacco use type Cigarette 01/11/24 10:07 e-Cigarette/Vaping Use Never Used 01/11/24 10:07 PHQ-9: PHQ-9 Score PHQ-9: Total score 2 01/11/24 10:07 Depression Screening Interpretation: Positive Depression Screening Follow-up: Existing condition and In treatment Thrive Assessment: Date of Thrive Assessment Date Thrive assessed 01/11/24 01/11/24 10:07 Currently or been in a relationship where the following occur: No concerns reported Const General: no acute distress and alert HENMT Ears: TM's normal bilaterally and EAC's normal Throat: Yes posterior oropharynx normal and Yes tonsils normal (no TP congestion) Neck Neck: Yes no lymphadenopathy and Yes supple Thyroid: Thyroid normal Resp Auscultation: clear to auscultation bilaterally, no rales and no wheezes Cardio Rate: regular rate Rhythm: regular rhythm Heart sounds: no murmurs GI Palpation (GI): Soft to palpation and nontender Auscultation: normal bowel sounds General: Yes no CVA tenderness Back/Spine/Pelvis Back: no CVA tenderness Cervical Spine: No Cervical spine tenderness Thoracic/Lumbar Spine: No lumbar spinal tenderness Skin Other: (+) couple of raised, keratotic lesions on both lower legs; (+) multiple skin tags and a couple of hyperpigmented skin lesions at the left axillary area Rashes: no rashes Extrem General: Yes no clubbing, cyanosis or edema Results Reviewed Results Reviewed: Laboratory Tests 12/31/23 12/31/23 08:38 08:45 WBC 7.0 Hgb 13.8 Hct 40.6 Plt Count 143 L D Sodium 141 Potassium 4.3 Creatinine 0.77 Estimated GFR > 60 Fasting Glucose 113 H Hemoglobin A1c % 5.2 Calcium 9.9 AST 14 ALT 19 Triglycerides 77 Cholesterol 183 LDL Cholesterol, Calc 95 HDL Cholesterol 73 25-OH Vitamin D Total 68.0 TSH 1.09 Ur Specific [place] 1.020 Urine Protein Negative Urine Glucose (UA) Negative Urine Blood Negative Urine Nitrite Negative Ur Leukocyte Esterase Negative Assessment and Plan Assessment & Plan (1) Pure hypercholesterolemia: Code(s): E78.00 - Pure hypercholesterolemia, unspecified Plan: Results of her labs done a couple of weeks ago reviewed and discussed with patient - advised that her numbers are excellent and well-controlled Reinforced low cholesterol diet Continue Atorvastatin 40 mg QD Will recheck her labs and fasting lipids in 6 months for follow up (2) Impaired fasting glucose: Code(s): R73.01 - Impaired fasting glucose Plan: Her FBS was still elevated at 113 mg/dl on her recent labs but her HgbA1c was normal at 5.2% - this has improved from her previous HgbA1c readings of 5.8% and 5.9% this past year Advised again that this is also likely due to the effects of Semaglutide, which she has been on for a few months now for weight loss Reinforced low calorie/low carb diet and exercise as tolerated (3) Gastritis: Code(s): K29.70 - Gastritis, unspecified, without bleeding Qualifiers: Gastritis type: unspecified gastritis Chronicity: unspecified Gastritis bleeding: without bleeding Qualified Code(s): K29.70 - Gastritis, unspecified, without bleeding Plan: Reinforced dietary restrictions Continue Omeprazole 20 mg QD PRN (4) COPD (chronic obstructive pulmonary disease): Code(s): J44.9 - Chronic obstructive pulmonary disease, unspecified Qualifiers: COPD type: emphysema Emphysema type: unspecified Qualified Code(s): J43.9 - Emphysema, unspecified Plan: Her CT lung screening last year revealed (+) findings of pulmonary emphysema Patient is still actively smoking and she is again encouraged to quit - states that she is slowly trying to cut down on this Continue Albuterol HFA 1 to 2 inhalations Q 6 hours PRN for now She has been advised that she will likely need to have PFTs done at some point to further assess her respiratory status (5) Elevated blood pressure reading in office without diagnosis of hypertension: Code(s): R03.0 - Elevated blood-pressure reading, without diagnosis of hypertension Plan: Reinforced low sodium diet - goal is systolic BP of at least 120 to 130 mm or less Her blood pressure reading is much better today compared to what it was during her previous visit Patient is reminded to continue monitoring her BP regularly (6) Vitamin D deficiency: Code(s): E55.9 - Vitamin D deficiency, unspecified Plan: Continue Vitamin D and calcium supplements daily (7) Osteopenia: Onset Date: ~2019 Comment: (Bone Dexa Femoral T-score: -2.2 on 11/28/2019) Code(s): M85.80 - Other specified disorders of bone density and structure, unspecified site Qualifiers: Osteopenia location: unspecified Qualified Code(s): M85.80 - Other specified disorders of bone density and structure, unspecified site Plan: Her baseline BMD done back in November 2019 showed (+) findings of osteopenia Patient is again encouraged to exercise regularly and to continue taking her Vitamin D and Calcium supplements daily Will now recheck her BMD for follow up (8) Allergic rhinitis: Code(s): J30.9 - Allergic rhinitis, unspecified Qualifiers: Allergic rhinitis trigger: unspecified Allergic rhinitis seasonality: unspecified Qualified Code(s): J30.9 - Allergic rhinitis, unspecified Plan: Will start her again on Fluticasone 50 mcg nasal spray QD for her increased allergy symptoms lately Will start her additionally on Loratadine 10 mg QD PRN (9) Generalized skin lesions: Code(s): L98.9 - Disorder of the skin and subcutaneous tissue, unspecified Plan: She has (+) raised keratotic lesions on both lower legs as well as multiple skin tags and a couple of hyperpigmented lesions at the left axillary area Per request, will refer her to dermatology for further evaluation and management of these lesions (10) Post herpetic neuralgia: Code(s): B02.29 - Other postherpetic nervous system involvement Plan: Continue Acyclovir 200 mg every 12 hours PRN as instructed for any breakthrough symptoms (11) Mixed stress and urge urinary incontinence: Code(s): N39.46 - Mixed incontinence Plan: She has tried Oxybutynin ER previously, which did not help at all with her symptoms Will consider referral to urology if her symptoms progress or get worse (12) Anxiety: Code(s): F41.9 - Anxiety disorder, unspecified Plan: Continue Clonazepam 0.5 mg 1/2 to 1 tablet once a day as needed She is also on Fluoxetine, which helps with her anxiety as well (13) Major depression, recurrent: Code(s): F33.9 - Major depressive disorder, recurrent, unspecified Qualifiers: Active/Remission status: currently active Major depression episode severity: unspecified Qualified Code(s): F33.9 - Major depressive disorder, recurrent, unspecified Plan: Continue Fluoxetine 20 mg 2 capsules (40 mg) QD (14) Smoker: Code(s): F17.200 - Nicotine dependence, unspecified, uncomplicated Plan: CT lung screening done in April 2021 came out benign although it showed (+) findings of pulmonary emphysema Patient counseled again on smoking cessation (15) Obesity (BMI 30-39.9): Code(s): E66.9 - Obesity, unspecified Plan: Reinforced diet/exercise as tolerated/lose weight Continue Semaglutide 1 mg SQ injections weekly - Rx is being prescribed by weight management Follow up with Weight Management as scheduled Plan Follow up in 6 months Orders: Orders Comprehensive [place]. Panel Fast 6 Months E78.00 - Pure hypercholesterolemia, unspecified Hemoglobin A1c 6 Months R73.01 - Impaired fasting glucose Lipid Panel 6 Months E78.00 - Pure hypercholesterolemia, unspecified XR DEXA axial skeleton Today Z78.0 - Asymptomatic menopausal state Referrals Dermatology Referral L98.9 - Disorder of the skin and subcutaneous tissue, unspecified Medications: New loratadine 10 mg PO DAILY 90 days PRN 90 tabs 3RF allergy symptoms J30.9 - Allergic rhinitis, unspecified fluticasone propionate 50 mcg/actuation administer into each nostril 2 sprays intranasal DAILY 30 days PRN 16 grams 5RF allergy symptoms Coding Level of Care Code Est Pt Level 4 (89437) Complex EM visit Add On G2211 Diagnoses Pure hypercholesterolemia E78.00 Impaired fasting glucose R73.01 Gastritis without bleeding, unspecified chronicity, unspecified gastritis type K29.70 Gastritis type: unspecified gastritis Chronicity: unspecified Gastritis bleeding: without bleeding Pulmonary emphysema, unspecified emphysema type J43.9 COPD type: emphysema Emphysema type: unspecified Elevated blood pressure reading in office without diagnosis of hypertension R03.0 Vitamin D deficiency E55.9 Osteopenia, unspecified location M85.80 Osteopenia location: unspecified Allergic rhinitis, unspecified seasonality, unspecified trigger J30.9 Allergic rhinitis trigger: unspecified Allergic rhinitis seasonality: unspecified Generalized skin lesions L98.9 Post herpetic neuralgia B02.29 Mixed stress and urge urinary incontinence N39.46 Anxiety F41.9 Episode of recurrent major depressive disorder, unspecified depression episode severity F33.9 Active/Remission status: currently active Major depression episode severity: unspecified Smoker F17.200 Obesity (BMI 30-39.9) E66.9
== END 2024-01-11 10:53 | disposition home or self-care (01) ==
PROVIDERS: PCP Internal Medicine; Visit Provider Internal Medicine
DX: E78.00 Pure hypercholesterolemia, unspecified (principal); J43.9 Emphysema, unspecified; F33.9 Major depressive disorder, recurrent, unspecified; R73.01 Impaired fasting glucose; K29.70 Gastritis, unspecified, without bleeding; R03.0 Elevated blood-pressure reading, without diagnosis of hypertension; E55.9 Vitamin D deficiency, unspecified; M85.80 Other specified disorders of bone density and structure, unspecified site; J30.9 Allergic rhinitis, unspecified; L98.9 Disorder of the skin and subcutaneous tissue, unspecified; B02.29 Other postherpetic nervous system involvement

== ENCOUNTER → 2024-01-11 09:52 | Outpatient (BNVA) | payer OTHER, SELFPAY | PROVIDERS: PCP Internal Medicine; Visit Provider Internal Medicine | DX: E78.00 Pure hypercholesterolemia, unspecified (principal); R73.01 Impaired fasting glucose; K29.70 Gastritis, unspecified, without bleeding; J43.9 Emphysema, unspecified; E55.9 Vitamin D deficiency, unspecified; R03.0 Elevated blood-pressure reading, without diagnosis of hypertension | CPT/HCPCS: 99212 ==

== ENCOUNTER 2024-02-14 09:39 | Outpatient (REF) | payer OTHER, SELFPAY ==
--- NOTE | ~2024-02-14 | MM_ITS ---
EXAMINATION: BONE DENSITOMETRY CLINICAL INDICATION: Menopause. COMPARISON: Baseline BD dated 11/28/2019. TECHNIQUE: Using a [employer] DXA System (software version: 13.1) manufactured by [employer], dual-energy x-ray absorptiometry was performed of the lumbar spine and left hip. The images are of good technical quality. Summary results are attached. FINDINGS: LEFT FEMUR, NECK: Current: BMD 0.790 g/cm2, Z-score -0.9, T-score -1.8, osteopenia. Baseline: BMD 0.732 g/cm2. LEFT FEMUR, TOTAL: Current: BMD 0.915 g/cm2, Z-score -0.2, T-score -0.7, normal, 2.8% increase from baseline (<5% change is not significant). Baseline: BMD 0.890 g/cm2. AP SPINE L1-L4: Current: BMD 0.856 g/cm2, Z-score -2.0, T-score -2.7, osteoporosis, 7.8% decrease from baseline (<5% change is not significant). Baseline: BMD 0.928 g/cm2. IDENTIFIED RISK FACTORS: Early menopause, secondary osteoporosis, tobacco use (current smoker). HISTORY OF FRACTURE: None listed. MEDICATIONS: Calcium or multivitamin. Vitamin D. MM/XR DEXA axial skeleton IMPRESSION: 1. DIAGNOSIS: Osteoporosis based on the lowest T-score value of -2.7 in the lumbar spine applying World Health Organization criteria. 2. 10-YEAR FRACTURE RISK PREDICTION, FRAX: According to the guidelines, FRAX calculation should only be performed on patients in the osteopenia bone density category. Therefore, FRAX was not performed on this patient. 3. Treatment Recommendations: NOF guidelines recommend consideration for treatment in postmenopausal women and men age 50 and older presenting with the following: -A hip or vertebral (clinical or morphometric) fracture. -T-score less than or equal to -2.5 at the femoral neck or spine after appropriate evaluation to exclude secondary causes. -Low bone mass at the hip or spine and a 10-year fracture probability by FRAX of greater than or equal to 3% for hip fracture or greater than or equal to 20% for major osteoporotic fracture based on the [place] adapted WHO algorithm. 4. Other Recommendations: All treatment decisions require clinical judgment and consideration of individual patient factors, including patient preferences, comorbidities, previous drug use, risk factors not captured in the FRAX model (e.g. frailty, falls, vitamin D deficiency, increased bone turnover, interval significant decline in bone density) and possible under or overestimation of fracture risk by FRAX. Additional medical evaluation for secondary cause of low bone mineral density may be appropriate. FUTURE SCAN RECOMMENDATION: People with diagnosed cases of osteoporosis or at high risk for fracture should have regular bone mineral density tests. For patients eligible for Medicare, routine testing is allowed once every 2 years. The testing frequency can be increased to one year for patients who have rapidly progressing disease, those who are receiving or discontinuing medical therapy to restore bone mass, or have additional risk factors. Electronically signed by: Merlin Colorado MD 02/15/2024 01:03 PM EDT RP
== END 2024-02-14 09:40 | disposition home or self-care (01) ==
LOC: HO.MAMMO 09:39
PROVIDERS: PCP Internal Medicine; Visit Provider Internal Medicine
DX: Z13.820 Encounter for screening for osteoporosis (principal); Z78.0 Asymptomatic menopausal state
CPT/HCPCS: 77080

== ENCOUNTER 2024-06-23 09:08 | Outpatient (REF) | payer OTHER, SELFPAY ==
[2024-06-23 12:14] LABS: Estimated Average Glucose 108 mg/dL; Hemoglobin A1C 126.9768 umol/L; Hemoglobin A1c % 5.4 % (<6.0); Total Hemoglobin (HGBA1C) 3524.6331 umol/L
[2024-06-23 12:17] LABS: Alanine Aminotransferase 24 U/L (0-31); Albumin Level 4.4 g/dL (3.5-5.0); Anion Gap 14 (12-20); Aspartate Amino Transferase 19 U/L (5-31); Bilirubin Total 0.6 mg/dL (0.0-1.0); Blood Urea Nitrogen 21 mg/dL (9-16); Calcium 9.8 mg/dL (8.4-10.2); Carbon Dioxide 25 mmol/L (22-29); Chloride 109 mmol/L (96-108); Cholesterol 175 mg/dL (<200); Estimated Glomerular Filt Rate > 60; Glucose Fasting 117 mg/dL (60-99); HDL Cholesterol 71 mg/dL (>40); LDL Cholesterol Calculated 89 mg/dL (<100); Potassium 4.3 mmol/L (3.3-5.1); Sodium 144 mmol/L (135-145); Total Protein 7.2 g/dL (6.5-8.0); Triglycerides 75 mg/dL (<150)
[2024-06-23 13:59] LABS: Alkaline Phosphatase 41 U/L (39-117)
== END 2024-06-23 09:09 | disposition home or self-care (01) ==
LOC: HO.HMGCLDS 09:08
PROVIDERS: PCP Internal Medicine; Visit Provider Internal Medicine
DX: R73.01 Impaired fasting glucose (principal); E78.00 Pure hypercholesterolemia, unspecified
CPT/HCPCS: 36415; 80053; 80061; 83036

== ENCOUNTER 2024-07-10 10:43 | Outpatient (AMB) | payer OTHER, SELFPAY ==
--- NOTE | 2024-07-10 11:00 | A.OFFPC_ITS ---
Vital Signs 07/10/24 11:01 Height 5 ft 1 in Weight 207 lb 8 oz BMI 39.2 BP 132/86 Blood Pressure Location Lt brachial Position Sitting Pulse Source Pulse Oximeter Oxygen Delivery Method Room Air Intake Visit Reasons: hyperlipidemia Allergies Seasonal Allergy (Unknown, Uncoded 07/10/24 11:20) unknown trees and pollen Allergy (Unknown, Uncoded 07/10/24 11:20) unknown Medication List - Last Reconciled 07/10/24 by Jose David Weeks MD acetaminophen (Tylenol) 325 mg PO QID PRN acyclovir 200 mg PO Q12H PRN 7 days albuterol sulfate 90 mcg/actuation 2 puffs inhalation Q6H PRN aspirin 81 mg PO DAILY atorvastatin 40 mg PO BEDTIME 90 days clonazepam 0.5 mg PO DAILY PRN 30 days fluoxetine 40 mg (2 x 20 mg) PO DAILY 90 days fluticasone propionate 50 mcg/actuation 2 sprays intranasal DAILY PRN 30 days ibuprofen 800 mg PO Q8H PRN 30 days loratadine 10 mg PO DAILY PRN 90 days omeprazole 20 mg PO DAILY semaglutide 1 mg subcut QWEEK Ventolin HFA 90 mcg/actuation (albuterol sulfate) 2 puffs inhalation Q6H PRN NS Tobacco use date assessed: 01/11/24 Dental Screening Dental Screen Date: 01/11/24 Did you have a dental visit in the last 12 months?: Yes Did you have a dental problem in the last 6 months where you did not have access to dental care?: No Was dental information given to patient?: Patient has dentist HPI hyperlipidemia HPI Details Patient comes in today for her follow up visit States that she has been under a lot of stress lately with her fiance passing away suddenly from a blood clot following some surgery a few months ago She also has not been able to afford to continue on her Semaglutide injections for the past few months for weight loss (her insurance would not cover the Rx so she has been paying for her Rx [id number]) so she has gained over 10 pounds since her last visit as a result States that she now has some money saved up again recently and would like to try going back on her Semaglutide injections She denies any headaches or dizziness Denies any chest pains, no SOB No nausea/vomiting, no abdominal pain No change in bowel habits noted She had her follow up labs done a couple of weeks ago - to discuss her results [facility] Medical History (Updated 07/10/24 @ 18:54 by Jose David Weeks MD) Smoker Osteoporosis Obesity (BMI 30-39.9) Nicotine dependence, cigarettes, uncomplicated Morbid obesity with BMI of 40.0-44.9, adult Major depression, recurrent Anxiety Mixed stress and urge urinary incontinence Post herpetic neuralgia Osteopenia (~2020) Vitamin D deficiency Allergic rhinitis Impaired fasting glucose Pure hypercholesterolemia Gastritis Surgical History History of cataract surgery History of foot surgery History of bunionectomy Family History Father Diabetes Brain tumor Mother COPD (chronic obstructive pulmonary disease) Emphysema lung Brother Colon cancer Social History Household Members Other:: fiance Housing: House Are you a primary associate director career services to a significant other at home: No Do you presently have visiting nurse or other home services: No Alcohol intake: current Alcohol intake frequency: a few times a week Alcohol type: beer Patient Tobacco Use Status: Current everyday Tobacco user Tobacco use type: Cigarette Cigarette Packs Per Day: 0.5 Cigarettes Per Day: 4 Years Smoked: 40 e-Cigarette/Vaping Use: Never Used Second Hand Smoke Exposure: Yes service: No Current occupational status: employed 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 1. Little interest or pleasure in doing things: several days 2. Feeling down, depressed, or hopeless: several days 3. Trouble falling or staying asleep, or sleeping too much: not at all 4. Feeling tired or having little energy: not at all 5. Poor appetite or overeating: not at all 6. Feeling bad about yourself - or that you are a failure or have let yourself or your family down: not at all 7. Trouble concentrating on things, such as reading the newspaper or watching television: not at all 8. Moving or speaking so slowly that other people could have noticed. Or the opposite - being so fidgety or restless that you have been moving around a lot more than usual: not at all 9. Thoughts that you would be better off or of hurting yourself in some way: not at all Total score: 2 Depression Screening Interpretation: Positive Depression Screening Follow-up: Existing condition and In treatment Depression Screening Done: Yes 45192 - PHQ-9 Billing: Yes Source: Developed by Drs. Humberto Mcgill, Ramsey Sethi and colleagues, with an educational asif from [employer]. Thrive Questionnaire Date Thrive assessed: 07/10/24 I am a: Patient What is your living situation today?: I have a steady place to live Within the past 12 months, did the food you bought not last and you didn't have the money to get more?: Never true Within the past 12 months, did you worry whether your food would run out before you got money to buy more?: Never true Do you have trouble paying for medicines?: No Do you have trouble getting transportation to medical appointments?: No Do you have trouble paying your heating and electricity bill?: No Do you have trouble taking care of your child, family member or friend?: No Do you have trouble with day-to-day activities such as bathing, preparing meals, shopping, managing finances, etc.?: No Are you currently unemployed and looking for a job?: No Are you interested in more education?: No Please select the resources that you would like help with: None Currently or been in a relationship where the following occur: No concerns reported THRIVE Score: 0 AUDIT C Alcohol Use Questionnaire (AUDIT-C) 1. How often do you have a drink containing alcohol?: Monthly or less 2. How many drinks containing alcohol do you have on a typical day when you are drinking?: 1 or 2 3. How often do you have six or more drinks on one occasion?: Never Total Score: 1 Score Reviewed/Action Taken: Yes ALMA-7 AMB Questionnaire ALMA-7 Date ALMA - 7 assessed: 01/11/24 Source: Developed by Drs. Humberto Mcgill, Rachele Marcus, Ramsey Cuadra and colleagues, with an educational asif from [employer]. Review of Systems Const Denies chills, Denies fatigue, Denies fever(s) and Denies headache(s) ENT Denies dysphagia, Denies dizziness, Denies otalgia, Denies headache(s), Denies neck pain, Denies odynophagia and Denies sore throat Card Denies chest pain, Denies palpitations and Denies dyspnea Resp Denies chest congestion, Denies cough and Denies dyspnea GI Denies abdominal pain, Denies constipation, Denies dysphagia, Denies heartburn, Denies diarrhea, Denies nausea, Denies odynophagia and Denies vomiting Denies difficulty voiding, Denies nocturia, Denies dysuria and Denies urinary urgency Musc Denies back pain and Denies neck pain Skin/Breast Denies rash Neuro Denies dizziness and Denies headache(s) Psych Reports depression (better controlled) Endo Denies fatigue and Denies palpitations Physical exam (Primary Care) Vital Signs: Last Vital Signs BP 132/86 07/10/24 11:01 Oxygen Delivery Method Room Air 07/10/24 11:01 BMI result Body Mass Index 39.2 Tobacco/Smoking Status: Tobacco use Status Tobacco use date assessed 01/11/24 07/10/24 11:03 Patient Tobacco Use Status Current everyday Tobacco 07/10/24 11:03 Tobacco use type Cigarette 07/10/24 11:03 e-Cigarette/Vaping Use Never Used 07/10/24 11:03 Depression Screening Interpretation: Positive Depression Screening Follow-up: Existing condition and In treatment Thrive Assessment: Date of Thrive Assessment Date Thrive assessed 01/11/24 07/10/24 11:03 Currently or been in a relationship where the following occur: No concerns reported Const General: no acute distress and alert HENMT Ears: TM's normal bilaterally and EAC's normal Throat: Yes posterior oropharynx normal and Yes tonsils normal (no TP congestion) Neck Neck: Yes supple and No lymphadenopathy Thyroid: Thyroid normal Resp Auscultation: clear to auscultation bilaterally, no rales and no wheezes Cardio Rate: regular rate Rhythm: regular rhythm Heart sounds: no murmurs GI Palpation (GI): Soft to palpation and nontender Auscultation: normal bowel sounds General: Yes no CVA tenderness Back/Spine/Pelvis Back: no CVA tenderness Cervical Spine: No Cervical spine tenderness Thoracic/Lumbar Spine: No lumbar spinal tenderness Skin Rashes: no rashes Extrem General: Yes no clubbing, cyanosis or edema Results Reviewed Results Reviewed: Laboratory Tests 06/23/24 09:25 Sodium 144 Potassium 4.3 Creatinine 0.73 Estimated GFR > 60 Fasting Glucose 117 H Hemoglobin A1c % 5.4 Calcium 9.8 AST 19 ALT 24 Triglycerides 75 Cholesterol 175 LDL Cholesterol, Calc 89 HDL Cholesterol 71 Coding Level of Care Code Est Pt Level 4 (61476) Diagnoses Pure hypercholesterolemia E78.00 Impaired fasting glucose R73.01 Gastritis without bleeding, unspecified chronicity, unspecified gastritis type K29.70 Gastritis type: unspecified gastritis Chronicity: unspecified Gastritis bleeding: without bleeding Pulmonary emphysema, unspecified emphysema type J43.9 COPD type: emphysema Emphysema type: unspecified Elevated blood pressure reading in office without diagnosis of hypertension R03.0 Vitamin D deficiency E55.9 Age-related osteoporosis without current pathological fracture M81.0 Osteoporosis type: age-related Presence of current pathological fracture: without current pathological fracture Allergic rhinitis, unspecified seasonality, unspecified trigger J30.9 Allergic rhinitis trigger: unspecified Allergic rhinitis seasonality: unspecified Post herpetic neuralgia B02.29 Mixed stress and urge urinary incontinence N39.46 Anxiety F41.9 Episode of recurrent major depressive disorder, unspecified depression episode severity F33.9 Active/Remission status: currently active Major depression episode severity: unspecified Smoker F17.200 Obesity (BMI 30-39.9) E66.9 Additional Codes PHQ-9 - 90549 - PHQ-9 Billing: Yes ([id number]) Assessment & Plan Assessment & Plan (1) Pure hypercholesterolemia: Code(s): E78.00 - Pure hypercholesterolemia, unspecified Category: Medical Plan: Results of her labs done a couple of weeks ago reviewed and discussed with patient Reinforced low cholesterol diet Continue Atorvastatin 40 mg QD Will recheck her labs and fasting lipids in 6 months for follow up (2) Impaired fasting glucose: Code(s): R73.01 - Impaired fasting glucose Category: Medical Plan: Her FBS was still elevated at 117 mg/dl on her recent labs but her HgbA1c remained normal at 5.4% (HgbA1c was at 5.2% last fall in December 2023) Reinforced low calorie/low carb diet (3) Gastritis: Code(s): K29.70 - Gastritis, unspecified, without bleeding Category: Medical Qualifiers: Gastritis type: unspecified gastritis Chronicity: unspecified Gastritis bleeding: without bleeding Qualified Code(s): K29.70 - Gastritis, unspecified, without bleeding Plan: Reinforced dietary restrictions Continue Omeprazole 20 mg QD PRN (4) COPD (chronic obstructive pulmonary disease): Code(s): J44.9 - Chronic obstructive pulmonary disease, unspecified Category: Medical Qualifiers: COPD type: emphysema Emphysema type: unspecified Qualified Code(s): J43.9 - Emphysema, unspecified Plan: Her CT lung screening over the past couple of years revealed (+) findings of pulmonary emphysema She will be due for her repeat CT lung screening again next month Patient is still actively smoking and is again encouraged to quit - states that she is slowly trying to cut down on her smoking and working on quitting Continue Albuterol HFA 1 to 2 inhalations Q 6 hours PRN for now She has been advised that she will likely need to have PFTs done at some point to further assess her respiratory status (5) Elevated blood pressure reading in office without diagnosis of hypertension: Code(s): R03.0 - Elevated blood-pressure reading, without diagnosis of hypertension Category: Medical Plan: Reinforced low sodium diet - goal is systolic BP of at least 120 to 130 mm or less Patient is reminded to continue monitoring her BP regularly (6) Vitamin D deficiency: Code(s): E55.9 - Vitamin D deficiency, unspecified Category: Medical Plan: Continue Vitamin D and calcium supplements daily (7) Osteoporosis: Code(s): M81.0 - Age-related osteoporosis without current pathological fracture Category: Medical Qualifiers: Osteoporosis type: age-related Presence of current pathological fracture: without current pathological fracture Qualified Code(s): M81.0 - Age- related osteoporosis without current pathological fracture Plan: Her repeat bone density done in January 2024 revealed (+) osteoporosis based on the lowest T-score value of -2.7 in the lumbar spine Her baseline BMD done back in November 2019 showed (+) findings of osteopenia so patient is advised that her BMD has declined significantly since, especially in her lumbar spine area Patient is again encouraged to exercise regularly and to continue taking her Vitamin D and Calcium supplements daily but fall precautions reinforced She agreed to start taking oral bisphosphonates to help lower her risks of fragility fractures - will go ahead and start her on Alendronate 70 mg once a week as instructed Will have her check her urine NTx in a few months for further evaluation Will also refer her to endocrinology for further recommendations regarding her osteoporosis management (8) Allergic rhinitis: Code(s): J30.9 - Allergic rhinitis, unspecified Category: Medical Qualifiers: Allergic rhinitis trigger: unspecified Allergic rhinitis seasonality: unspecified Qualified Code(s): J30.9 - Allergic rhinitis, unspecified Plan: Continue Fluticasone 50 mcg nasal spray QD and Loratadine 10 mg QD PRN (9) Post herpetic neuralgia: Code(s): B02.29 - Other postherpetic nervous system involvement Category: Medical Plan: Continue Acyclovir 200 mg every 12 hours PRN as instructed for any breakthrough symptoms (10) Mixed stress and urge urinary incontinence: Code(s): N39.46 - Mixed incontinence Category: Medical Plan: She has tried Oxybutynin ER previously, which did not help at all with her symptoms Will consider referral to urology if her symptoms progress or get worse (11) Anxiety: Code(s): F41.9 - Anxiety disorder, unspecified Category: Medical Plan: Continue Clonazepam 0.5 mg 1/2 to 1 tablet once a day as needed She is also on Fluoxetine, which helps with her anxiety as well (12) Major depression, recurrent: Code(s): F33.9 - Major depressive disorder, recurrent, unspecified Category: Medical Qualifiers: Active/Remission status: currently active Major depression episode severity: unspecified Qualified Code(s): F33.9 - Major depressive disorder, recurrent, unspecified Plan: Continue Fluoxetine 20 mg 2 capsules (40 mg) QD (13) Smoker: Code(s): F17.200 - Nicotine dependence, unspecified, uncomplicated Category: Social Hx Plan: Patient is counseled again on complete smoking cessation (14) Obesity (BMI 30-39.9): Code(s): E66.9 - Obesity, unspecified Category: Medical Plan: Reinforced diet/exercise as tolerated/lose weight Will start her back on Semaglutide 1 mg SQ once a week to help her lose weight Plan Follow up in 6 months Orders: Orders Complete Blood Count Auto Diff 6 Months D64.9 - Anemia, unspecified Comprehensive [place]. Panel Fast 6 Months E78.00 - Pure hypercholesterolemia, unspecified Lipid Panel 6 Months E78.00 - Pure hypercholesterolemia, unspecified Collagen Crosslinks NTX 6 Months M81.0 - Age-related osteoporosis without current pathological fracture Hemoglobin A1c 6 Months R73.01 - Impaired fasting glucose UA CC w/rflx Micro + Cult 6 Months R30.0 - Dysuria Vitamin D 25-OH Total 6 Months E55.9 - Vitamin D deficiency, unspecified TSH reflex Free T4 6 Months E78.00 - Pure hypercholesterolemia, unspecified Referrals Endocrinology Referral M81.0 - Age-related osteoporosis without current pathological fracture Medications: New alendronate To be taken first thing in the morning on an empty stomach with a full glass of water; patient has to stay upright for at least the next 30 minutes and should not eat or drink anything else for 30 to 60 minutes after taking the medication 70 mg PO QWEEK 3 months 13 tabs 1RF semaglutide (weight loss) 1 mg (0.5 mL) subcut QWEEK 2 mL 1RF
[2024-07-10 11:01] VITALS: BP 132/86; BMI 39.2
--- OUTSIDE RECORDS SUMMARY | 2024-07-10 12:42 | XMS_ITS | Encounter Summary ---
Author Organization [employer] Address [address] [place] [address] [address] [place] [address] Care Team Providers Care Pump Operator Byproducts Name Role Phone Unavailable Primary Care Provider Unavailabl e Reason for Visit * Reason Comments Routine Cleaning Dental Exam Encounter Details Date Type Department Care Team ([facility] st Contact Info) Description 06/15/2024 11:00 AM EST Office Visit [facility] [address] [place] [address] Rach Garcia Social History Tobacco Use Types Packs/Day Years Used Date Smoking Tobacco: Every Day Cigarettes Passive Smoke Exposure: Current Smokeless Tobacco: Never Alcohol Use Standard Drinks/Week Comments Defer 0 (1 standard drink = 0.6 oz pur e alcohol) Comments Unknown Sex and Gender Information Value Date Recorded Sex Assigned at Female 02/22/2022 10:24 AM EDT Legal Sex Female 10:24 AM EDT Gender Identity Female 02/22/2022 10:24 AM EDT Sexual Orientation Straight 02/22/2022 10 :24 AM EDT documented as of this encounter Last Filed Vital Signs Vital Sign Reading Time Taken Comments Blood Pressure 132/84 06/15/2024 10:29 AM EST Pulse - - Temperature - - Respiratory Rate - - Oxygen Saturation - - Inhaled Oxygen Concentration - - Weight - - Height - - Body Mass Index - - documented in this encounter Progress Notes * Rach Garcia - 06/15/2024 11:00 AM EST Patient ID: Allie Lou is a 63 y.o. female. Time Out: Timeout Date: 06/15/24, Timeout Time: 1035 Location: [facility] Tooth: Maxilla and Mandible Procedure: Exam and Prophylaxis Verified the above with patient, accounting manager assistant controller, and provider. Confirmed via patient's chart, intraorally and by radiographs. Lockstitch Sleeve Setter: not applicable Medical Hx: Vitals: Blood pressure 132/84. Medications, Med Hx reviewed with patient and updated in chart. Treatment Provided Dental procedures in this visit D1110 - PROPHYLAXIS - ADULT (Completed) Service provider: Rach Melton provider: Noah Celaya [id number] - CASE PRESENTATION, DETAILED AND EXTENSIVE TREATMENT PLANNING (Completed) Service provider: Rach Melton provider: Noah Celaya [id number] - ORAL HYGIENE INSTRUCTIONS (Completed) Service provider: Rach Melton provider: Noah Celaya Instruments Used: Ultrasonic Scalers, Hand Scalers, and Prophy angle Fluoride: N/A Oral Cancer Screening: No lesions Head/Neck Exam: No Lesions Calculus: Light and Localized Plaque: Light and Generalized Stain: Light and Localized Bleeding: Light and Localized Gingiva: Healthy and Recession- generalized OH: Good Perio Chart: Completed Dental exam done by Dr. Celaya. Oral hygiene instructions provided to patient including brushing technique and flossing. Recommendations: [place] two times daily, modified cantu technique, Floss daily, Electric toothbrush, Soft bristle toothbrush, [place] Tongue, Anti-sensitivity toothpaste, Prevident Recall Frequency: 6 mo NV: Restorations Hygienist: Rach Garcia RDH * Noah Celaya - 06/15/2024 11:00 AM EST Images from the original note were not included. Dental procedures in this visit D1110 - PROPHYLAXIS - ADULT (Completed) Service provider: Rach Melton provider: Noah Celaya [id number] - CASE PRESENTATION, DETAILED AND EXTENSIVE TREATMENT PLANNING (Completed) Service provider: Rach Melton provider: Noah Celaya [id number] - ORAL HYGIENE INSTRUCTIONS (Completed) Service provider: Rach Melton provider: Noah Celaya [id number] - PERIODIC ORAL EVALUATION - ESTABLISHED PATIENT (Completed) Service provider: Noah Melton provider: Noah Celaya Patient ID: Allie Lou is a 63 y.o. female. Time Out: Timeout Date: 06/15/24, Timeout Time: 1035 Location: [facility] Tooth: Maxilla and Mandible Procedure: Exam Verified the above with patient, accounting manager assistant controller, and provider. Confirmed via patient's chart, intraorally and by radiographs. Lockstitch Sleeve Setter: not applicable Chief Complaint Patient presents with Routine Cleaning Dental Exam Medical Hx: Vitals: Blood pressure 132/84. Past Medical History: Diagnosis Date GERD (gastroesophageal reflux disease) Medications: Outpatient Encounter Medications as of 06/15/2024 Medication Sig Dispense Refill aspirin 81 MG chewable tablet Chew 1 tablet at bed time. atorvastatin (Lipitor) 40 MG tablet Take 40 mg by mouth at bedtime. clonazePAM (KlonoPIN) 0.5 MG tablet Take 0.5 mg by mouth if needed each day. FLUoxetine (PROzac) 20 MG capsule Take 1 capsule by mouth at bed time. fluticasone (Flonase) 50 MCG/ACT nasal spray ADMINISTER 2 SPRAYS IN EACH NOSTRIL DAILY ibuprofen 800 MG tablet Take 800 mg by mouth every 8 (eight) hours if needed. omeprazole (PriLOSEC) [address] capsule Take 20 mg by mouth in the morning. Ventolin HFA 108 (90 Base) MCG/ACT inhaler INHALE 2 PUFFS EVERY 6 HOURS NEEDED FOR SHORTNESS OF BREATH OR WHEEZING No facility-administered encounter medications on file as of 06/15/2024. 63 y/o female presents for an exam seen by Dr. Noah Celaya, TONY. Chief Complaint: I came for my cleaning appointment Medical History: Patient does not report any changes in health issues that could alter the Treatment Plan. Medical consult / medical clearance needed: None [place]: Pain: no Duration: no Pain radiating: no Postural variation: no Allergies: Reviewed in EHR Medications: Reviewed in EHR Radiographs X-rays taken today: FMX taken on 11/23/23 Discussion: -Pt stated that patient has no pain in any tooth or any other dental concerns. -Pt asked for partial dentures and stated that that a provider in facility recommended in the past. -Upon exam, #20 was planned for extraction in the past and is Grade 2 mobile. RCT was started in the past by another provider but due to clinical complications and mobility (due to bone loss), extraction was recommended. -Pt declined extraction today as #20 doesn't bother the pt as stated by pt. -Pt was informed that tooth can become symptomatic in future; will be monitored as per patient's request. Pt aware of waiting list of providers including Dr. Eli. -Pt brushes aggressively and cervical abrasions noted that were planned for composite restorations. -Restorations planned as charted. -OHI reviewed. Emphasis was laid on maintaining good oral hygiene regimen at home along with regular visits to dentist. -Pt understood, was satisfied with our conversation and agreed with tx plan; dismissed in good condition. -All questions answered. Soft tissue exam: WNL; OCS- negative Head and neck exam: Lymph Nodes, Lips, Palate, Buccal Mucosa, Floor of Mouth, Tongue, Tonsils, Alveolar Ridges, Oropharynx, Salivary Ducts, Vestibules - no abnormal findings. TMJ/Occlusal - TMJ is within normal limits. Oral Cancer Risk - low Oral Hygiene Instruction Provided - Yes Oral Hygiene Instructions: [place] two times daily, modified cantu technique, Floss daily, Electric toothbrush, Soft bristle toothbrush, [place] Tongue. Referrals - None Treatment plan: -restorative -6 month recall All questions answered and expressed understanding. Dismissed in good condition. NV: Restorative Hygienist: Rach Garcia Dentist: Dr. Noah Celaya, DMD documented in this encounter Plan of Treatment Not on file documented as of this encounter Procedures Procedure Name Priority Date/Time Associated Diagnosis Comments PROPHYLAXIS - ADULT Routine 06/15/2024 1 1:00 AM EST PERIODIC ORAL EVALUATION - ESTABLISHED PATIENT Routine 06/15/2024 11:00 AM EST ORAL HYGIENE INSTRUCTIONS Routine 2024 11:00 AM EST CASE PRESENTATION, DETAILED AND EXTENSIVE TREATMENT PLANNING Routine 06/15/2024 11:00 AM EST documented in this encounter Visit Diagnoses Not on filedocumented in this encounter
--- OUTSIDE RECORDS SUMMARY | 2024-07-10 12:42 | XMS_ITS | Encounter Summary ---
Author Organization [employer] Address [address] [place] [address] Care Team Providers Care Recording Engineer Name Role Phone Unavailable Primary Care Provider Unavailabl e Encounter Details Date Type Department Care Team (Latest Contact Info) Description 07/02/2020 Abstract [facility] CONVERSIONS Dental, Provider, DDS Social History Tobacco Use Types Packs/Day Years Used Date Smoking Tobacco: Never Assessed Comments Unknown Sex and Gender Information Value Date Recorded Sex Assigned at Female 02/22/2022 10:24 AM EDT Legal Sex Female 10:24 AM EDT Gender Identity Female 02/22/2022 10:24 AM EDT Sexual Orientation Straight 02/22/2022 10 :24 AM EDT documented as of this encounter Plan of Treatment Not on file documented as of this encounter Visit Diagnoses Not on filedocumented in this encounter
--- OUTSIDE RECORDS SUMMARY | 2024-07-10 12:42 | XMS_ITS | Clinical Summary ---
Author Organization [employer] Address [address] [place] [address] Care Team Providers Care Carbon Cleaner Name Role Phone Unavailable Primary Care Provider Unavailabl e Allergies No known active allergies Medications Ventolin HFA 108 (90 Base) MCG/ACT inhaler INHALE 2 PUFFS EVERY 6 HOURS NEEDED FOR SHORTNESS OF BREATH OR WHEEZING 2 Active atorvastatin (Lipitor) 40 MG tablet Take 40 mg by mouth at bedtime. 2 Active aspirin 81 MG chewable tablet Chew 1 tablet at bed time. Active FLUoxetine (PROzac) 20 MG capsule Take 1 capsule by mouth at bed time. Active clonazePAM (KlonoPIN) 0.5 MG tablet Take 0.5 mg by mouth if needed each day. 3 Active fluticasone (Flonase) 50 MCG/ACT nasal spray ADMINISTER 2 SPRAYS IN EACH NOSTRIL DAILY 3 Active ibuprofen 800 MG tablet Take 800 mg by mouth every 8 (eight) hours if needed. 3 Active omeprazole (PriLOSEC) [address] capsule Take 20 mg by mouth in the morning. 3 Active Active Problems No known active problems Encounters Date Type Department Care Team Description 06/15/2024 11:00 AM EST Office Visit [facility] ADULT DENTAL [address] [place], [place] [id number] Rach Garcia from Last 3 Months Social History Tobacco Use Types Packs/Day Years Used Date Smoking Tobacco: Every Day Cigarettes Passive Smoke Exposure: Current Smokeless Tobacco: Never Tobacco Cessation:Ready to Q uit: Not Asked; Counseling Given: Not Answered Alcohol Use Standard Drinks/Week Comments Defer 0 (1 standard drink = 0.6 oz pur e alcohol) Comments Unknown Sex and Gender Information Value Date Recorded Sex Assigned at Female 02/22/2022 10:24 AM EDT Legal Sex Female 10:24 AM EDT Gender Identity Female 02/22/2022 10:24 AM EDT Sexual Orientation Straight 02/22/2022 10 :24 AM EDT Last Filed Vital Signs Vital Sign Reading Time Taken Comments Blood Pressure 132/84 06/15/2024 10:29 AM EST Pulse 65 11/23/2023 10:17 AM EDT Temperature - - Respiratory Rate - - Oxygen Saturation - - Inhaled Oxygen Concentration - - Weight - - Height - - Body Mass Index - - Plan of Treatment Health Maintenance Due Date Last Done Comments CT Colonography 1960 Colonoscopy 1960 Colorectal Cancer Screening 1960 Depression Screening 1960 FIT DNA/Cologuard 1960 FIT 1960 FOBT 1960 HIV Screening 1960 Lipid Panel 1960 SDOH Screening 1960 Sigmoidoscopy 1960 Alcohol/Substance Use Screening 1972 Hepatitis C Screening 1978 Pap Smear 1981 Cervical Cancer Screening 1990 HPV/Cotest 1990 Mammogram 2000 Zoster Vaccines (1 of 2) 2010 Pneumococcal Vaccine: 50+ Years (2 of 2 - PCV) 11/10/2016 11/11/2015 COVID-19 Vaccine ( - season) 2023 Influenza Vaccine (#1) 2023 Dental X-Ray: Bitewings 11/23/2024 11/23/2023, 05/28 Dental Oral Exam 12/14/2024 06/15/2024, , 01/03/2023, Additional history exists Dental Prophylaxis 12/14/2024 06/15/2024, 0 11/23/2023, 01/03/2023, Additional history exists Tobacco Screening 06/15/2025 06/15/2024 DTaP/Tdap/Td Vaccines (2 - Td or Tdap) 11/02/2026 11/02/2016 Dental X-Ray: Full Mouth 11/23/2026 11/23/2023 RSV Patients and Patients Aged 60 years or older (1 - 1-dose 75+ series) 09/15/2035 HIB Vaccines Aged Out No longer eligi ble based on patient's age to complete this topic HPV Vaccines Aged Out No longer eligi ble based on patient's age to complete this topic Hepatitis A Vaccines Aged Out No long er eligible based on patient's age to complete this topic Hepatitis B Vaccines Aged Out No long er eligible based on patient's age to complete this topic IPV Vaccines Aged Out No longer eligi ble based on patient's age to complete this topic Meningococcal Vaccine Aged Out No socorro radha eligible based on patient's age to complete this topic RSV under 20 months Aged Out No longe r eligible based on patient's age to complete this topic Rotavirus Vaccines Aged Out No longer eligible based on patient's age to complete this topic Procedures Procedure Name Priority Date/Time Associated Diagnosis Comments PERIODIC ORAL EVALUATION - ESTABLISHED PATIENT Routine 06/15/2024 11:00 AM EST ORAL HYGIENE INSTRUCTIONS Routine 2024 11:00 AM EST CASE PRESENTATION, DETAILED AND EXTENSIVE TREATMENT PLANNING Routine 06/15/2024 11:00 AM EST PROPHYLAXIS - ADULT Routine 06/15/2024 1 1:00 AM EST INTRAORAL - COMPLETE SERIES OF RADIOGRAPHIC IMAGES Routine 11/23/2023 10:00 AM EDT from Last 3 Months or Most Recently Relevant to Health Maintenance Insurance [facility] [place] [address] [place] STAND ADULT
--- OUTSIDE RECORDS SUMMARY | 2024-07-10 12:42 | XMS_ITS | Encounter Summary ---
Author Organization [employer] Address [address] [place] [address] Care Team Providers Care Documentation Specialist Name Role Phone Unavailable Primary Care Provider Unavailabl e Reason for Visit * Reason Onset Date Comments Appointment 01/04/2023 Encounter Details Date Type Department Care Team (Late st Contact Info) Description 01/04/2023 Telephone [facility] ADULT DENTAL [address] [place] [address] Vincenzo Singh Appointment Social History Tobacco Use Types Packs/Day Years [...] AM EDT documented as of this encounter Miscellaneous Notes * Telephone Encounter - Lashawn Linda - 01/05/2023 12:33 PM EDT Thank you Annie patient called in again and is still waiting is there any update of something beingsent to the pharmacy yet please advise. * Telephone Encounter - Lashawn Linda - 01/04/2023 9:45 AM EDT Allie Lou 1960 Patient was seen on 01/03/2023 for Prophy exam and was told medication would be sent to pharmacy patient called in and stated nothing was sent yet please advise documented in this encounter Plan of Treatment Not on file documented as of this encounter Visit Diagnoses Not on filedocumented in this encounter
== END 2024-07-10 11:35 | disposition home or self-care (01) ==
LOC: HO.HMCH 10:44
PROVIDERS: PCP Internal Medicine; Visit Provider Internal Medicine
DX: E78.00 Pure hypercholesterolemia, unspecified (principal); J43.9 Emphysema, unspecified; R73.01 Impaired fasting glucose; F33.9 Major depressive disorder, recurrent, unspecified; K29.70 Gastritis, unspecified, without bleeding; R03.0 Elevated blood-pressure reading, without diagnosis of hypertension; E55.9 Vitamin D deficiency, unspecified; M81.0 Age-related osteoporosis without current pathological fracture; J30.9 Allergic rhinitis, unspecified; B02.29 Other postherpetic nervous system involvement; N39.46 Mixed incontinence; F41.9 Anxiety disorder, unspecified

== ENCOUNTER → 2024-07-10 10:43 | Outpatient (BNVA) | payer OTHER, SELFPAY | PROVIDERS: PCP Internal Medicine; Visit Provider Internal Medicine | DX: E78.00 Pure hypercholesterolemia, unspecified (principal); R73.01 Impaired fasting glucose; K29.70 Gastritis, unspecified, without bleeding; J43.9 Emphysema, unspecified; R03.0 Elevated blood-pressure reading, without diagnosis of hypertension; E55.9 Vitamin D deficiency, unspecified; M81.0 Age-related osteoporosis without current pathological fracture; J30.9 Allergic rhinitis, unspecified; B02.29 Other postherpetic nervous system involvement; N39.46 Mixed incontinence; F41.9 Anxiety disorder, unspecified; F33.9 Major depressive disorder, recurrent, unspecified; E66.9 Obesity, unspecified; F17.200 Nicotine dependence, unspecified, uncomplicated; Z71.6 Tobacco abuse counseling | CPT/HCPCS: 96127; 99212 ==

== ENCOUNTER 2024-08-07 09:30 | Outpatient (REF) | payer OTHER, SELFPAY ==
--- OUTSIDE RECORDS SUMMARY | 2024-08-07 10:44 | XMS_ITS | Encounter Summary ---
Author Organization [employer] Address [address] [place] [address] Care Team Providers Care Suction Roller Name Role Phone Unavailable Primary Care Provider Unavailabl e Encounter Details Date Type Department Care Team (Latest Contact Info) Description 07/02/2020 Abstract [facility] CONVERSIONS Dental, Provider, DDS Social History Tobacco [...]
--- OUTSIDE RECORDS SUMMARY | 2024-08-07 10:44 | XMS_ITS | Encounter Summary ---
Author Organization [employer] Address [address] [place] [address] Care Team Providers Care Pharmaceutical Analyst Name Role Phone Unavailable Primary Care Provider Unavailabl e Reason for Visit * Reason Onset Date Comments Appointment 01/04/2023 Encounter Details Date Type Department Care Team (Late st Contact Info) Description 01/04/2023 Telephone [facility] CHC ADULT DENTAL [address] [place] [address] Vincenzo Singh Appointment Social History Tobacco Use [...]
--- OUTSIDE RECORDS SUMMARY | 2024-08-07 10:44 | XMS_ITS | Clinical Summary ---
Author Organization [employer] Address [address] [place] [address] Care Team Providers Care Correspondence Specialist Name Role Phone Unavailable Primary Care [...] Description 06/15/2024 11:00 AM EST Office Visit [facility] ADULT D[facility]AL [address] [place], [place] [phone] Rach Garcia from Last 3 Months Social [...] Most Recently Relevant to Health Maintenance [place] [address] DENTAL-[facility] MEDICAID STAND ADULT [facility]AL[facility] MEDICAID STAND ADULT
== END 2024-08-07 09:31 | disposition home or self-care (01) ==
LOC: HO.CT 09:30
PROVIDERS: PCP Internal Medicine; Visit Provider Physician Assistant Medical
DX: Z12.2 Encounter for screening for malignant neoplasm of respiratory organs (principal); F17.210 Nicotine dependence, cigarettes, uncomplicated
CPT/HCPCS: 71271

== ENCOUNTER → 2024-08-07 09:35 | Outpatient (BNV) | payer OTHER, SELFPAY | PROVIDERS: PCP Internal Medicine; Visit Provider Specialist | DX: F17.210 Nicotine dependence, cigarettes, uncomplicated (principal) | CPT/HCPCS: 71271 ==

== ENCOUNTER 2024-09-13 09:44 | Outpatient (AMB) | payer OTHER, SELFPAY ==
--- NOTE | 2024-09-13 09:47 | A.OFFVIS_ITS ---
Vital Signs 09/13/24 09:54 Height 5 ft 1 in Weight 203 lb BMI 38.4 BP 122/72 Intake Visit Reasons: HOSE SEAMER annual exam Video Production Coordinator: Video Production Coordinator Present (Terri) Accompanied by: Self / Same As Patient Allergies Seasonal Allergy (Unknown, Uncoded 07/10/24 11:20) unknown trees and pollen Allergy (Unknown, Uncoded 07/10/24 11:20) unknown Is last menstrual period known: No Post menopausal: Yes Patient : No HPI Comments Details: She is a postmenopausal woman presenting for her annual non destructive tester examination. She is doing well with non destructive tester concerns: Admits to loss of bladder control, had referral last year to urology but was unable to coordinate an appointment and did not follow through. Upset today discussing the loss of her partner suddenly this past March. Denies any vaginal dryness or irritation. Attempting to eat a healthy diet with calcium and vitamin D and stays active with exercise. Last pap smear; 2021, negative. Last mammogram; 2023. Colonoscopy is UTD. Denies any family history of breast or ovarian, FH colon cancer-brother. [facility] Medical History (Updated 09/13/24 @ 10:32 by Kylah Mariano CNM) Smoker Osteoporosis Obesity (BMI 30-39.9) Nicotine dependence, cigarettes, uncomplicated Morbid obesity with BMI of 40.0-44.9, adult Major depression, recurrent Anxiety Mixed stress and urge urinary incontinence Post herpetic neuralgia Osteopenia (~2019) Vitamin D deficiency Allergic rhinitis Impaired fasting glucose Pure hypercholesterolemia Gastritis Surgical History History of cataract surgery History of foot surgery History of bunionectomy Family History Father Diabetes Brain tumor Mother COPD (chronic obstructive pulmonary disease) Emphysema lung Brother Colon cancer Social History (Updated 09/13/24 @ 10:36 by Kylah Mariano CNM) Housing: House Are you a primary home health care coordinator to a significant other at home: No Do you presently have visiting nurse or other home services: No Alcohol intake: current Alcohol intake frequency: a few times a week Alcohol type: beer Patient Tobacco Use Status: Current everyday Tobacco user Tobacco use type: Cigarette Cigarette Packs Per Day: 0.5 Cigarettes Per Day: 4 Years Smoked: 40 e-Cigarette/Vaping Use: Never Used Second Hand Smoke Exposure: Yes service: No Current occupational status: employed 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 Sexual orientation: Straight/Heterosexual Gender identity: Female Cognitive needs: No Hearing needs: No Vision needs: Yes (reading glasses) Female Reproductive History Menstrual control method: none Total pregnancies: 2 Full term: 2 Date of last pap smear: 03/05/22 (negative pap smear, negative hpv ) History of abnormal pap smear: No Date of Mammogram: 10/21/23 (bi rad 1) Date of last Bone Density Screenin02/14/24 Review of Systems Const All systems reviewed & are unremarkable except as noted in HPI and below Reports as per HPI Eyes Reports no additional complaints ENT Reports no additional complaints Card Reports no additional complaints Resp Reports no additional complaints GI Reports as per HPI and Reports no additional complaints Reports as per HPI Musc Reports no additional complaints Skin/Breast Reports as per HPI Neuro Reports no additional complaints Psych Reports no additional complaints Endo Reports no additional complaints Ralph/Lymph Reports no additional complaints Aller/Immun Reports no additional complaints Physical Exam Vital Signs: Last Vital Signs BP 122/72 09/13/24 09:54 BMI result Body Mass Index 38.4 Const General: cooperative, healthy appearing, no acute distress, well developed and alert Orientation/consciousness: patient oriented x3 HEENT Head: Yes normal to inspection Eyes General: appearance normal, both eyes and all related structures Neck Neck: Yes normal visual inspection Thyroid: Thyroid normal Chest Chest palpation & inspection: normal inspection of the chest and other (no puckering, dimpling, peau de orange, retraction, discharge, masses) Breast/axilla inspection: normal inspection of the breasts Breast/axilla palpation: normal palpation of the breasts Resp Effort & Inspection: normal respiratory effort GI Inspection: Yes normal to inspection and Yes obesity Palpation (GI): Soft to palpation Rectal Exam - Female: deferred General: Yes bladder normal to palpation External Female Exam: normal external appearance and normal appearance of the urethra Speculum Exam - Vagina: normal appearance of the vagina, normal palpation and normal vaginal discharge Speculum Exam - Cervix: normal appearance of the cervix and normal palpation Bimanual exam- vagina & uterus: normal bimanual exam, normal palpation, uterine size normal, bladder normal to palpation, normal palpation and non-tender Bimanual Exam- Adnexa, other: no masses Skin General skin exam: no rashes or lesions noted Rashes: no rashes Neuro General: patient oriented x3 Cognition (Neuro): normal cognition Extrem General: Yes normal to inspection Psych Attitude: cooperative Thought process: Normal thought process present Assessment & Plan Assessment & Plan (1) Encounter for well woman exam with routine gynecological exam: Code(s): Z01.419 - Encounter for gynecological examination (general) (routine) without abnormal findings Category: Medical Plan Discussed: Current recommendations for pap smears per ASCCP guidelines. Breast awareness, periodic self breast exams and yearly mammogram. Maintain a healthy lifestyle, well balanced diet including Calcium 1,200 mg and Vitamin D 600 IU daily, and routine exercise. Grief process, encouraged counseling-she will consider it. Pelvic floor exercise packet provided encouraged regular exercise. Information on pelvic floor specialty services booklet given, advised to call if she is interested in a referral at this time. If decides to have a urology appointment notify office for referral. Contact the office with any postmenopausal bleeding. Patient verbalizes understanding and agrees to the plan of care. She was given opportunity to ask questions and all questions were answered to the best of my ability. RTO in 1 year for annual non destructive tester exam. This note is constructed using voice recognition software. While every effort has been made to ensure accuracy, paper cone grader errors may have been included. Coding Level of Care Code Est Pt Prev Care 40-64y(90447) Diagnoses Encounter for well woman exam with routine gynecological exam Z01.419
[2024-09-13 09:54] VITALS: BP 122/72; BMI 38.4
--- OUTSIDE RECORDS SUMMARY | 2024-09-13 10:05 | XMS_ITS | Encounter Summary ---
Author Organization [employer] Address [address] [place] [address] Care Team Providers Care Switch Operators Supervisor Name Role Phone Unavailable Primary Care Provider Unavailabl e Encounter Details Date Type Department Care Team (Latest Contact Info) Description 07/02/2020 Abstract [facility] CONVERSIONS Dental, Provider, DDS Social History [...]
--- OUTSIDE RECORDS SUMMARY | 2024-09-13 10:05 | XMS_ITS | Clinical Summary ---
Author Organization [employer] Address [address] [place] [address] Care Team Providers Care Apparatus Cleaner Name Role Phone Unavailable Primary Care [...] Active Active Problems No known active problems Social History Tobacco Use Types Packs/Day Years [...] Panel 1960 SDOH Screening 1960 Sigmoidoscopy 1960 Disability Screening 1960 Alcohol/Substance Use Screening 1972 Hepatitis C Screening 1978 Pap Smear 1981 Cervical Cancer Screening 1990 HPV/Cotest 1990 Mammogram 2000 Zoster Vaccines (1 of 2) 2010 Pneumococcal Vaccine: 50+ Years (2 of 2 - PCV) 11/10/2016 11/11/2015 COVID-19 Vaccine ( - 2023- season) 2023 Influenza Vaccine (#1) 2023 Dental [...] patient's age to complete this topic Meningococcal B Vaccine Aged Out No l onger eligible based on patient's age to complete [...] ESTABLISHED PATIENT Routine 06/15/2024 11:00 AM EST INTRAORAL - COMPLETE SERIES OF RADIOGRAPHIC IMAGES Routine 11/23/2023 10:00 AM EDT from Last 3 Months or Most Recently Relevant to Health Maintenance [facility]
--- OUTSIDE RECORDS SUMMARY | 2024-09-13 10:05 | XMS_ITS | Encounter Summary ---
Author Organization [employer] Address [address] [place] [address] Care Team Providers Care Cytologist Name Role Phone Unavailable Primary Care Provider Unavailabl e Reason for Visit * Reason Onset Date Comments Appointment 01/04/2023 Encounter Details Date Type Department Care Team ([facility] st Contact Info) Description 01/04/2023 Telephone [facility] CHC ADULT DENTAL [address] [place] [address] Vincenzo Singh Appointment Social History Tobacco Use [...]
== END 2024-09-13 10:30 | disposition home or self-care (01) ==
LOC: HO.HWS 09:45
PROVIDERS: PCP Internal Medicine; Visit Provider Advanced Practice Midwife
DX: Z01.419 Encounter for gynecological examination (general) (routine) without abnormal findings (principal)
CPT/HCPCS: 99396; 99459

== ENCOUNTER → 2024-09-13 09:44 | Outpatient (BNVA) | payer OTHER, SELFPAY | PROVIDERS: PCP Internal Medicine; Visit Provider Advanced Practice Midwife | DX: Z01.419 Encounter for gynecological examination (general) (routine) without abnormal findings (principal) | CPT/HCPCS: 99396; 99459 ==

== ENCOUNTER 2024-12-11 08:47 | Outpatient (REF) | payer OTHER, SELFPAY ==
--- OUTSIDE RECORDS SUMMARY | 2024-12-11 09:33 | XMS_ITS | Encounter Summary ---
Author Organization [employer] Address [address] [place] [address] Care Team Providers Care Manager Environmental Name Role Phone Unavailable Primary Care Provider Unavailabl e Reason for Visit * Reason Onset Date Comments Appointment 01/04/2023 Encounter Details Date Type Department Care Team ([facility] st Contact Info) Description 01/04/2023 Telephone [facility] CHC ADULT DENTAL [address] [place] [address] Vincenzo Singh Appointment Social History Tobacco Use [...]
[2024-12-11 10:04] LABS: MANUAL DIFF FLAG NO
[2024-12-11 10:18] LABS: Hematocrit 40.6 % (37.0-47.0); Hemoglobin 13.4 g/dl (12.0-16.0); Imm Gran Abs Auto 0.01 X10*3/uL (0.00-0.03); Imm Gran Pct Auto 0.2 % (0.0-0.4); Lymphocytes Absolute Auto 1.7 X10*3/uL (1.2-4.9); Mean Corpuscular HGB Conc 33.0 g/dl (31.0-35.0); Mean Corpuscular Hemoglobin 31.0 pg (27.0-33.0); Mean Corpuscular Volume 94.0 fL (80.0-98.0); NRBC Abs Auto 0.000 X10*3/uL (0.0-0.012); NRBC Pct Auto 0.0 /100WBC (0.0-0.2); Platelet Count 293 X10*3/uL (160-400); Red Blood Count 4.32 X10*6/uL (4.20-5.50); White Blood Count 5.4 X10*3/uL (4.8-10.8)
[2024-12-11 10:26] LABS: Hemoglobin A1C 112.6214 umol/L; Total Hemoglobin (HGBA1C) 3532.0815 umol/L
[2024-12-11 10:39] LABS: Alanine Aminotransferase 21 U/L (0-31); Albumin Level 4.5 g/dL (3.5-5.0); Alkaline Phosphatase 39 U/L (39-117); Anion Gap 11 (12-20); Aspartate Amino Transferase 19 U/L (5-31); Blood Urea Nitrogen 17 mg/dL (9-16); Calcium 9.3 mg/dL (8.4-10.2); Carbon Dioxide 28 mmol/L (22-29); Chloride 108 mmol/L (96-108); Cholesterol 188 mg/dL (<200); Estimated Glomerular Filt Rate > 60; HDL Cholesterol 60 mg/dL (>40); Potassium 4.3 mmol/L (3.3-5.1); Sodium 143 mmol/L (135-145); Total Protein 6.6 g/dL (6.5-8.0); Triglycerides 79 mg/dL (<150)
[2024-12-11 10:50] LABS: Appearance Urine Clear; Glucose Urine UA Negative (Negative); PH 7.0 (5.0-9.0); Specific Gravity - Urine 1.025 (1.005-1.025); UMIC TRIGGER UACC YES
[2024-12-20 14:53] LABS: NTXCreaRU 166 mg/dL (20-275)
== END 2024-12-11 08:48 | disposition home or self-care (01) ==
LOC: HO.HMGCLDS 08:47
PROVIDERS: PCP Internal Medicine; Visit Provider Internal Medicine
DX: R73.01 Impaired fasting glucose (principal); D64.9 Anemia, unspecified; E78.00 Pure hypercholesterolemia, unspecified; M81.0 Age-related osteoporosis without current pathological fracture; E55.9 Vitamin D deficiency, unspecified; R30.0 Dysuria
CPT/HCPCS: 36415; 80053; 80061; 81001; 82306; 82523; 83036; 84443; 85025

== ENCOUNTER 2025-01-11 10:36 | Outpatient (AMB) | payer OTHER, SELFPAY ==
[2025-01-11 10:38] VITALS: BP 126/80; PULSE 75; O2SAT 96; BMI 37.3
--- NOTE | 2025-01-11 10:38 | MHC.PC.OV ---
Vital Signs 01/11/25 10:38 Height 5 ft 1 in Weight 197 lb 4 oz BMI 37.3 BP 126/80 Blood Pressure Location Lt brachial Position Sitting Pulse 75 Pulse Source Pulse Oximeter Pulse Oximetry (%) 96 Oxygen Delivery Method Room Air Intake Visit Reasons: hyperlipidemia, osteoporosis [employer] Instructor Required: No Accompanied by: Self / Same As Patient Allergies Seasonal Allergy (Unknown, Uncoded 01/11/25 11:09) unknown trees and pollen Allergy (Unknown, Uncoded 01/11/25 11:09) unknown Medication List - Last Reconciled 01/11/25 by Jose David Weeks MD acetaminophen (Tylenol) 325 mg PO QID PRN acyclovir 200 mg PO Q12H PRN 7 days albuterol sulfate 90 mcg/actuation 2 puffs inhalation Q6H PRN alendronate 70 mg PO QWEEK 3 months aspirin 81 mg PO DAILY atorvastatin 40 mg PO BEDTIME 90 days clonazepam 0.5 mg PO DAILY PRN 30 days fluoxetine 40 mg (2 x 20 mg) PO DAILY 90 days fluticasone propionate 50 mcg/actuation 2 sprays intranasal DAILY PRN 30 days ibuprofen 800 mg PO Q8H PRN 30 days loratadine 10 mg PO DAILY PRN 90 days omeprazole 20 mg PO DAILY Ventolin HFA 90 mcg/actuation (albuterol sulfate) 2 puffs inhalation Q6H PRN NS Tobacco use date assessed: 01/11/25 Fall risk assessment: No Falls in past year Last assessed Fall Risk: 01/11/25 Dental Screening Dental Screen Date: 01/11/25 Did you have a dental visit in the last 12 months?: Yes Did you have a dental problem in the last 6 months where you did not have access to dental care?: No Was dental information given to patient?: Patient has dentist HPI hyperlipidemia, osteoporosis HPI Details Patient comes in today for her follow up visit Thinks that she has been feeling more depressed lately and feels that her current medication (Fluoxetine 40 mg QD) is no longer helping as well as it used to Relates that this is apparently made worse by her fiance passing away suddenly from a blood clot following some surgery a few months ago States that she went back on Ozempic for a few months after her last visit (to help her lose weight) but states that she stopped using it a couple of months ago as it was getting too expensive ($300 a month) for her to continue She denies any headaches or dizziness Denies any chest pains, no SOB No nausea/vomiting, no abdominal pain but relates (+) frequent abdominal discomfort and sensation of bloating - is concerned that she may have an ulcer in her stomach at present No change in bowel habits noted and states that she has not noticed any blood in her stool lately She had her follow up labs done last month - to discuss her results [facility] Medical History Smoker Osteoporosis Obesity (BMI 30-39.9) Nicotine dependence, cigarettes, uncomplicated Morbid obesity with BMI of 40.0-44.9, adult Major depression, recurrent Anxiety Mixed stress and urge urinary incontinence Post herpetic neuralgia Osteopenia (~2020) Vitamin D deficiency Allergic rhinitis Impaired fasting glucose Pure hypercholesterolemia Gastritis Surgical History History of cataract surgery History of foot surgery History of bunionectomy Family History Father Diabetes Brain tumor Mother COPD (chronic obstructive pulmonary disease) Emphysema lung Brother Colon cancer Social History Housing: House Are you a primary career placement services counselor to a significant other at home: No Do you presently have visiting nurse or other home services: No Alcohol intake: current Alcohol intake frequency: a few times a week Alcohol type: beer Patient Tobacco Use Status: Current everyday Tobacco user Tobacco use type: Cigarette Cigarette Packs Per Day: 0.5 Cigarettes Per Day: 4 Years Smoked: 40 e-Cigarette/Vaping Use: Never Used Second Hand Smoke Exposure: Yes service: No Current occupational status: employed 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 1. Little interest or pleasure in doing things: nearly every day 2. Feeling down, depressed, or hopeless: nearly every day 3. Trouble falling or staying asleep, or sleeping too much: nearly every day 4. Feeling tired or having little energy: nearly every day 5. Poor appetite or overeating: more than half the days 6. Feeling bad about yourself - or that you are a failure or have let yourself or your family down: nearly every day 7. Trouble concentrating on things, such as reading the newspaper or watching television: nearly every day 8. Moving or speaking so slowly that other people could have noticed. Or the opposite - being so fidgety or restless that you have been moving around a lot more than usual: several days 9. Thoughts that you would be better off or of hurting yourself in some way: not at all Total score: 21 Depression Screening Interpretation: Positive Depression Screening Follow-up: Existing condition and Change in Medication (dose adjustment) Depression Screening Done: Yes 20130 - PHQ-9 Billing: Yes Source: Developed by Drs. Humberto Mcgill, Rachele Marcus, Ramsey Cuadra and colleagues, with an educational asif from [employer]. Thrive Questionnaire Date Thrive assessed: 01/11/25 I am a: Patient What is your living situation today?: I have a steady place to live Within the past 12 months, did the food you bought not last and you didn't have the money to get more?: Never true Within the past 12 months, did you worry whether your food would run out before you got money to buy more?: Never true Do you have trouble paying for medicines?: No Do you have trouble getting transportation to medical appointments?: No Do you have trouble paying your heating and electricity bill?: No Do you have trouble taking care of your child, family member or friend?: No Do you have trouble with day-to-day activities such as bathing, preparing meals, shopping, managing finances, etc.?: No Are you currently unemployed and looking for a job?: No Are you interested in more education?: No Please select the resources that you would like help with: None Currently or been in a relationship where the following occur: No concerns reported THRIVE Score: 0 AUDIT C Alcohol Use Questionnaire (AUDIT-C) 1. How often do you have a drink containing alcohol?: Monthly or less 2. How many drinks containing alcohol do you have on a typical day when you are drinking?: 1 or 2 3. How often do you have six or more drinks on one occasion?: Never Total Score: 1 Score Reviewed/Action Taken: Yes ALMA-7 AMB Questionnaire ALMA-7 Date ALMA - 7 assessed: 01/11/24 Source: Developed by Drs. Humberto Mcgill, Rachele Marcus, Ramsey Cuadra and colleagues, with an educational asif from [employer]. Review of Systems Const Denies chills, Reports fatigue, Denies fever(s) and Denies headache(s) ENT Denies dysphagia, Denies dizziness, Denies otalgia, Denies headache(s), Denies neck pain, Denies odynophagia and Denies sore throat Card Denies chest pain, Denies palpitations and Denies dyspnea Resp Denies chest congestion, Denies cough and Denies dyspnea GI Denies abdominal pain (but (+) on and off diffuse discomfort), Reports bloating, Denies hematochezia, Denies constipation, Denies dysphagia, Denies heartburn, Denies diarrhea, Denies nausea, Denies odynophagia and Denies vomiting Denies difficulty voiding, Denies nocturia, Denies dysuria and Denies urinary urgency Musc Denies back pain and Denies neck pain Skin/Breast Denies rash Neuro Denies dizziness and Denies headache(s) Psych Reports depression (increasing) and Denies suicidal ideation Endo Reports fatigue and Denies palpitations Physical exam (Primary Care) Vital Signs: Last Vital Signs Pulse 75 01/11/25 10:38 BP 126/80 01/11/25 10:38 Pulse Ox 96 01/11/25 10:38 Oxygen Delivery Method Room Air 01/11/25 10:38 BMI result Body Mass Index 37.3 Tobacco/Smoking Status: Tobacco use Status Tobacco use date assessed 01/11/25 01/11/25 10:41 Patient Tobacco Use Status Current everyday Tobacco 01/11/25 10:41 Tobacco use type Cigarette 01/11/25 10:41 e-Cigarette/Vaping Use Never Used 01/11/25 10:41 Depression Screening Interpretation: Positive Depression Screening Follow-up: Existing condition and Change in Medication (dose adjustment) Thrive Assessment: Date of Thrive Assessment Date Thrive assessed 07/10/24 01/11/25 10:41 Currently or been in a relationship where the following occur: No concerns reported Const General: no acute distress and alert HENMT Ears: TM's normal bilaterally and EAC's normal Throat: Yes posterior oropharynx normal and Yes tonsils normal (no TP congestion) Neck Neck: Yes supple and No lymphadenopathy Thyroid: Thyroid normal Resp Auscultation: clear to auscultation bilaterally, no rales and no wheezes Cardio Rate: regular rate Rhythm: regular rhythm Heart sounds: no murmurs GI Palpation (GI): Soft to palpation, nontender and no guarding Auscultation: normal bowel sounds General: Yes no CVA tenderness Back/Spine/Pelvis Back: no CVA tenderness Cervical Spine: No Cervical spine tenderness Thoracic/Lumbar Spine: No lumbar spinal tenderness Skin Rashes: no rashes Extrem General: Yes no clubbing, cyanosis or edema Results Reviewed Results Reviewed: Laboratory Tests 12/11/24 12/11/24 08:53 08:58 WBC 5.4 Hgb 13.4 Hct 40.6 Plt Count 293 D Sodium 143 Potassium 4.3 Creatinine 0.71 Estimated GFR > 60 Fasting Glucose 99 Hemoglobin A1c % 5.1 Calcium 9.3 AST 19 ALT 21 Triglycerides 79 Cholesterol 188 LDL Cholesterol, Calc 113 H HDL Cholesterol 60 25-OH Vitamin D Total 63.1 TSH 1.40 Ur Specific [place] 1.025 Urine Protein Negative Urine Glucose (UA) Negative Urine Blood Negative Urine Nitrite Negative Ur Leukocyte Esterase Trace H Coding Level of Care Code Est Pt Level 4 (95316) Diagnoses Pure hypercholesterolemia E78.00 Impaired fasting glucose R73.01 Gastritis without bleeding, unspecified chronicity, unspecified gastritis type K29.70 Gastritis type: unspecified gastritis Chronicity: unspecified Gastritis bleeding: without bleeding Pulmonary emphysema, unspecified emphysema type J43.9 COPD type: emphysema Emphysema type: unspecified Elevated blood pressure reading in office without diagnosis of hypertension R03.0 Vitamin D deficiency E55.9 Age-related osteoporosis without current pathological fracture M81.0 Osteoporosis type: age-related Presence of current pathological fracture: without current pathological fracture Allergic rhinitis, unspecified seasonality, unspecified trigger J30.9 Allergic rhinitis trigger: unspecified Allergic rhinitis seasonality: unspecified Post herpetic neuralgia B02.29 Mixed stress and urge urinary incontinence N39.46 Anxiety F41.9 Episode of recurrent major depressive disorder, unspecified depression episode severity F33.9 Active/Remission status: currently active Major depression episode severity: unspecified Smoker F17.200 Obesity (BMI 30-39.9) E66.9 Additional Codes PHQ-9 - 53954 - PHQ-9 Billing: Yes ([id number]) Assessment & Plan Assessment & Plan (1) Pure hypercholesterolemia: Code(s): E78.00 - Pure hypercholesterolemia, unspecified Category: Medical Plan: Results of her labs done last month reviewed and discussed with patient - have cautioned patient that her LDL cholesterol has increased from previous Patient admits to poor compliance with her diet lately due to her increasing depression Reinforced low cholesterol diet Continue Atorvastatin 40 mg QD for now Will recheck her labs and fasting lipids in 6 months for follow up (2) Impaired fasting glucose: Code(s): R73.01 - Impaired fasting glucose Category: Medical Plan: Her FBS was normal at 99 mg/dl on her recent labs; her HgbA1c has also improved slightly from 5.4% previously to 5.1% on her recent labs Reinforced low calorie/low carb diet (3) Gastritis: Code(s): K29.70 - Gastritis, unspecified, without bleeding Category: Medical Qualifiers: Gastritis type: unspecified gastritis Chronicity: unspecified Gastritis bleeding: without bleeding Qualified Code(s): K29.70 - Gastritis, unspecified, without bleeding Plan: Reinforced dietary restrictions She was previously taking Omeprazole 20 mg only QD PRN but advised her to start taking this QD everyday again for at least a month Discussed that her recent stomach symptoms may be a lingering effect of her Semaglutide injections, which she stopped taking a couple of months ago Advised that if her symptoms persist despite PPI Tx x 1 month and cessation of her GLP-1 injection, then we will need to send her for further work ups for her stomach Otherwise, if her symptoms improve, she can then go back to QD PRN dosing on her PPI (4) COPD (chronic obstructive pulmonary disease): Code(s): J44.9 - Chronic obstructive pulmonary disease, unspecified Category: Medical Qualifiers: COPD type: emphysema Emphysema type: unspecified Qualified Code(s): J43.9 - Emphysema, unspecified Plan: Her CT lung screening over the past couple of years revealed (+) findings of pulmonary emphysema She had repeat CT lung screening again done in July 2024, which came out normal/negative Patient is still actively smoking and is again encouraged to quit - states that she is slowly trying to cut down on her smoking and working on quitting Continue Albuterol HFA 1 to 2 inhalations Q 6 hours PRN She has been advised that she will likely need to have PFTs done at some point to further assess her respiratory status (5) Elevated blood pressure reading in office without diagnosis of hypertension: Code(s): R03.0 - Elevated blood-pressure reading, without diagnosis of hypertension Category: Medical Plan: Reinforced low sodium diet - goal is systolic BP of at least 120 to 130 mm or less Patient is reminded to continue monitoring her BP regularly (6) Vitamin D deficiency: Code(s): E55.9 - Vitamin D deficiency, unspecified Category: Medical Plan: Continue Vitamin D and calcium supplements daily (7) Osteoporosis: Code(s): M81.0 - Age-related osteoporosis without current pathological fracture Category: Medical Qualifiers: Osteoporosis type: age-related Presence of current pathological fracture: without current pathological fracture Qualified Code(s): M81.0 - Age-related osteoporosis without current pathological fracture Plan: Her repeat bone density done in January 2024 revealed (+) osteoporosis based on the lowest T-score value of -2.7 in the lumbar spine Her baseline BMD done back in November 2019 showed (+) findings of osteopenia so patient is advised that her BMD has declined significantly since, especially in her lumbar spine area Patient is again encouraged to exercise regularly and to continue taking her Vitamin D and Calcium supplements daily but fall precautions reinforced Continue Alendronate 70 mg once a week as instructed Her urine NTx done last month came out okay She was referred to endocrinology for further recommendations regarding her osteoporosis management but she has not been seen yet (8) Allergic rhinitis: Code(s): J30.9 - Allergic rhinitis, unspecified Category: Medical Qualifiers: Allergic rhinitis trigger: unspecified Allergic rhinitis seasonality: unspecified Qualified Code(s): J30.9 - Allergic rhinitis, unspecified Plan: Continue Fluticasone 50 mcg nasal spray QD and Loratadine 10 mg QD PRN (9) Post herpetic neuralgia: Code(s): B02.29 - Other postherpetic nervous system involvement Category: Medical Plan: Continue Acyclovir 200 mg every 12 hours PRN as instructed for any breakthrough symptoms (10) Mixed stress and urge urinary incontinence: Code(s): N39.46 - Mixed incontinence Category: Medical Plan: She has tried Oxybutynin ER previously, which did not help at all with her symptoms Will consider referral to urology if her symptoms progress or get worse (11) Anxiety: Code(s): F41.9 - Anxiety disorder, unspecified Category: Medical Plan: Continue Clonazepam 0.5 mg 1/2 to 1 tablet once a day as needed She is also on Fluoxetine, which helps with her anxiety as well (12) Major depression, recurrent: Comment: Unexpected loss of long-term partner March 2024 Code(s): F33.9 - Major depressive disorder, recurrent, unspecified Category: Medical Qualifiers: Active/Remission status: currently active Major depression episode severity: unspecified Qualified Code(s): F33.9 - Major depressive disorder, recurrent, unspecified Plan: Will increase her Fluoxetine to 60 mg QD due to her increasing depression lately (13) Smoker: Code(s): F17.200 - Nicotine dependence, unspecified, uncomplicated Category: Social Hx Plan: Patient is counseled again on complete smoking cessation (14) Obesity (BMI 30-39.9): Code(s): E66.9 - Obesity, unspecified Category: Medical Plan: Reinforced diet/exercise as tolerated/lose weight She is no longer taking Semaglutide injections - stopped taking them a couple of months ago as they were getting too expensive for her to continue Plan Follow up in 6 months Orders: Orders Complete Blood Count Auto Diff 6 Months D64.9 - Anemia, unspecified Comprehensive [place]. Panel Fast 6 Months E78.00 - Pure hypercholesterolemia, unspecified Lipid Panel 6 Months E78.00 - Pure hypercholesterolemia, unspecified TSH reflex Free T4 6 Months E78.00 - Pure hypercholesterolemia, unspecified UA CC w/rflx Micro + Cult 6 Months R30.0 - Dysuria Vitamin D 25-OH Total 6 Months E55.9 - Vitamin D deficiency, unspecified Medications: New fluoxetine 60 mg PO DAILY 90 tabs 1RF 90 days Changed From omeprazole 20 mg PO DAILY 30 caps 3RF To omeprazole 20 mg PO DAILY 90 caps 1RF 90 days
--- OUTSIDE RECORDS SUMMARY | 2025-01-11 11:16 | XMS_ITS | Encounter Summary ---
Author Organization [employer] Address [address] [facility] [address] [place] [address] Care Team Providers Care Winch Runner Name Role Phone Unavailable Primary Care Provider Unavailabl e Encounter Details Date Type Department Care Team (Latest Contact Info) Description 07/02/2020 Abstract [facility] CONVERSIONS Dental, Provider, DDS Social [...] as of this encounter Plan of Treatment Upcoming Encounters Date Type Department Care Team ( st Contact Info) Description 02/01/2025 9:30 AM EDT Office Visit [facility] ADULT DENTAL [address] [place] [address] Vincenzo Singh documented as of this encounter Visit Diagnoses Not on filedocumented in this encounter
--- OUTSIDE RECORDS SUMMARY | 2025-01-11 11:16 | XMS_ITS | Encounter Summary ---
Author Organization [employer] Address [address] [facility] [address] [place] [address] Care Team Providers Care Oil And Gas Lease Pumper Name Role Phone Unavailable Primary Care Provider Unavailabl e Reason for Visit * Reason Onset Date Comments Appointment 01/04/2023 Encounter Details Date Type Department Care Team ([facility] st Contact Info) Description 01/04/2023 Telephone [facility] ADULT DENTAL [address] [place] [address] Vincenzo Singh Appointment Social History Tobacco Use [...] documented in this encounter Plan of Treatment Upcoming Encounters Date Type Department Care Team (Late st Contact Info) Description 02/01/2025 9:30 AM EDT Office Visit [facility] ADULT DENTAL [address] [place] [address] Vincenzo Singh documented as of this encounter Visit Diagnoses Not on filedocumented in this encounter
--- OUTSIDE RECORDS SUMMARY | 2025-01-11 11:16 | XMS_ITS | Clinical Summary ---
Author Organization [employer] Address [address] [facility] [address] [place] [address] Care Team Providers Care Construction Supervisor/Carpenter Name Role Phone Unavailable Primary Care Provider [...] Mass Index - - Plan of Treatment Upcoming Encounters Date Type Department Care Team (Late st Contact Info) Description 02/01/2025 9:30 AM EDT Office Visit [facility] AD[facility] [address] [place] [address] Vincenzo Singh Health Maintenance Due Date Last Done Comments [...] (2 of 2 - PCV) 11/10/2016 11/11/2015 Dental X-Ray: Bitewings 11/23/2024 11/23/2023, 05/28 Dental Oral Exam 12/14/2024 06/15/2024, , 01/03/2023, Additional history exists Dental Prophylaxis 12/14/2024 06/15/2024, 0 11/23/2023, 01/03/2023, Additional history exists COVID-19 Vaccine (1 - season) 2024 Influenza Vaccine (#1) 2024 Tobacco Screening 06/15/2025 06/15/2024 DTaP/Tdap/Td Vaccines (2 [...] Recently Relevant to Health [place] [address] DENTAL-[facility] MEDICAID STAND ADULT DENTAL-[facility] MEDICAID STAND ADULT
== END 2025-01-11 11:22 | disposition home or self-care (01) ==
LOC: HO.HMCH 10:37
PROVIDERS: PCP Internal Medicine; Visit Provider Internal Medicine
DX: E78.00 Pure hypercholesterolemia, unspecified (principal); J43.9 Emphysema, unspecified; E66.9 Obesity, unspecified; Z68.37 Body mass index [BMI] 37.0-37.9, adult; R73.01 Impaired fasting glucose; K29.70 Gastritis, unspecified, without bleeding; R03.0 Elevated blood-pressure reading, without diagnosis of hypertension; E55.9 Vitamin D deficiency, unspecified; M81.0 Age-related osteoporosis without current pathological fracture; J30.9 Allergic rhinitis, unspecified; N39.46 Mixed incontinence; F41.9 Anxiety disorder, unspecified; F33.9 Major depressive disorder, recurrent, unspecified

== ENCOUNTER → 2025-01-11 10:36 | Outpatient (BNVA) | payer OTHER, SELFPAY | PROVIDERS: PCP Internal Medicine; Visit Provider Internal Medicine | DX: M81.0 Age-related osteoporosis without current pathological fracture (principal); R73.01 Impaired fasting glucose; E78.00 Pure hypercholesterolemia, unspecified; K29.70 Gastritis, unspecified, without bleeding; J43.9 Emphysema, unspecified; R03.0 Elevated blood-pressure reading, without diagnosis of hypertension; E55.9 Vitamin D deficiency, unspecified; J30.9 Allergic rhinitis, unspecified; B02.29 Other postherpetic nervous system involvement; N39.46 Mixed incontinence; F41.9 Anxiety disorder, unspecified; F33.9 Major depressive disorder, recurrent, unspecified; F17.210 Nicotine dependence, cigarettes, uncomplicated; E66.9 Obesity, unspecified; R30.0 Dysuria; Z68.37 Body mass index [BMI] 37.0-37.9, adult | CPT/HCPCS: 96127; 99212 ==

== ENCOUNTER 2025-04-03 08:10 | Outpatient (AMB) | payer OTHER, SELFPAY ==
[2025-04-03 08:25] VITALS: BP 136/70; PULSE 78; O2SAT 95; BMI 38.5
--- NOTE | 2025-04-03 08:25 | AM.OFFWIN_ITS ---
Intake Vital Signs 04/03/25 08:25 Height 5 ft 1 in Weight 204 lb BMI 38.5 BP 136/70 Blood Pressure Location Lt brachial Position Sitting Pulse 78 Pulse Source Pulse Oximeter Pulse Oximetry (%) 95 Oxygen Delivery Method Room Air Intake Visit Reasons: EP-rt ankle pain & swollen Intake Note: Patient presents c/o right ankle/foot swelling/pain x3 weeks - described as burning/stinging feeling. Denies any injury. Patient Tobacco Use Status: Current everyday Tobacco user Allergies Seasonal Allergy (Unknown, Uncoded 04/03/25 08:28) unknown trees and pollen Allergy (Unknown, Uncoded 04/03/25 08:28) unknown HPI HPI Comments History of Present Illness Details This is a 64-year-old female with a past medical history of hyperlipidemia, depression and gastroesophageal reflux disease presenting for evaluation of a burning sensation on her medial right ankle that has been ongoing for the past 3 weeks. 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 She denies any injury or trauma preceding the onset of her symptoms. She has not taken any medication for treatment of this sensation. Patient denies having any calf pain or pain on the plantar surface of the right foot. Patient states that the pain will worsen throughout the day and is most notable when she returns home after work. [facility] Medical History Smoker Osteoporosis Obesity (BMI 30-39.9) Nicotine dependence, cigarettes, uncomplicated Morbid obesity with BMI of 40.0-44.9, adult Major depression, recurrent Anxiety Mixed stress and urge urinary incontinence Post herpetic neuralgia Osteopenia (~2019) Vitamin D deficiency Allergic rhinitis Impaired fasting glucose Pure hypercholesterolemia Gastritis Surgical History History of cataract surgery History of foot surgery History of bunionectomy Family History Father Diabetes Brain tumor Mother COPD (chronic obstructive pulmonary disease) Emphysema lung Brother Colon cancer Social History Housing: House Are you a primary care professional to a significant other at home: No Do you presently have visiting nurse or other home services: No Alcohol intake: current Alcohol intake frequency: a few times a week Alcohol type: beer Patient Tobacco Use Status: Current everyday Tobacco user Tobacco use type: Cigarette Cigarette Packs Per Day: 0.5 Cigarettes Per Day: 4 Years Smoked: 40 e-Cigarette/Vaping Use: Never Used Second Hand Smoke Exposure: Yes service: No Current occupational status: employed 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 Sexual orientation: Straight/Heterosexual Gender identity: Female Cognitive needs: No Hearing needs: No Vision needs: Yes (reading glasses) Review of Systems Const All systems reviewed & are unremarkable except as noted in HPI and below Reports no additional complaints Eyes Reports no additional complaints ENT Reports no additional complaints Card Reports no additional complaints Resp Reports no additional complaints GI Reports no additional complaints Reports no additional complaints Musc Denies abnormal gait, Denies back pain, Denies myalgias, Reports arthralgias (right medial ankle), Denies muscle cramps, Denies muscle weakness, Reports numbness, Denies stiffness and Reports tingling Skin/Breast Reports system reviewed and no additional complaints, except as documented Neuro Reports no additional complaints, Denies abnormal gait, Reports numbness and Reports tingling Psych Reports no additional complaints Endo Reports no additional complaints Ralph/Lymph Reports no additional complaints Aller/Immun Reports no additional complaints Physical Exam Vital Signs: BMI result Body Mass Index 38.5 Const General: cooperative, healthy appearing, comfortable, no acute distress, well developed, alert, awake and Physically active; No lethargic Nutritional Appearance: overweight Orientation/consciousness: patient oriented x3 and No lethargic Limitations: no limitations General: Yes no CVA tenderness Back/Spine/Pelvis Back: no CVA tenderness Thoracic/Lumbar Spine: paraspinal muscle tenderness on the left in the lower lumbar, No thoraco-lumbar spasm, No thoracic spinal tenderness, No lumbar spinal tenderness and No straight leg raise positive Pelvis: no sciatic notch tenderness Sacroiliac joints: bilaterally nontender Skin Other: No cutaneous lesions noted on the right ankle. General skin exam: no rashes or lesions noted Neuro General: patient oriented x3 Extrem Other: No erythema, edema, ecchymosis or tenderness to touch upon examination of the right ankle; passive ROM intact, sensation intact throughout including plantar surface of the right foot General: Yes capillary refill normal and Yes no calf tenderness Right lower extremity: normal to inspection, full ROM, normal capillary refill, no joint enlargement, ankle Details: normal to inspection, no edema and normal ROM; no tenderness and no swelling and foot Details: normal to inspection; no edema Psych Appearance: grossly normal Mental Status: mental status grossly normal Insight: Good insight present (Psych) Judgement: Good judgement present (Psych) Assessment & Plan Assessment & Plan (1) Right lumbar radiculopathy: Comment: Patient's history coupled with her examination is most consistent with a right lumbar radiculopathy. Patient's sensation is intact and she has no right calf pain that would be concerning for an acute DVT. Patient will be discharged home with anti-inflammatory therapy and instructed to follow up with her primary care provider as an outpatient. Code(s): M54.16 - Radiculopathy, lumbar region Plan: Naprosyn 500 mg b.i.d. times 7-10 days. Follow up for any worsening symptoms. Medications: New naproxen (Naprosyn) 500 mg PO BID 20 tabs 0RF Coding Level of Care Code Est Pt Level 3 (47218) Diagnoses Right lumbar radiculopathy M54.16 Time Spent (min) 20
== END 2025-04-03 09:38 | disposition home or self-care (01) ==
PROVIDERS: PCP Internal Medicine; Visit Provider Physician Assistant
DX: M54.16 Radiculopathy, lumbar region (principal)

== ENCOUNTER → 2025-04-03 08:10 | Outpatient (BNVA) | payer OTHER, SELFPAY | PROVIDERS: PCP Internal Medicine; Visit Provider Physician Assistant | DX: M25.571 Pain in right ankle and joints of right foot (principal); M54.16 Radiculopathy, lumbar region | CPT/HCPCS: 99212 ==